=== PATIENT | female | born 1935 | race Caucasian/White ===

== ENCOUNTER 2018-09-24 11:21 | Emergency (ER) | payer MEDICARE, OTHER ==
[2018-09-24] MEDS ORDERED: Sodium Chloride 0.9% 1000 ML 1,000 ML IV STA (11:56)
[2018-09-24] MEDS ORDERED: Sodium Chloride 0.9% 1000 ML 1,000 ML IV SCH (12:00)
[2018-09-24 12:01] VITALS: O2SAT 98
--- NOTE | 2018-09-24 12:04 | ERPHSYRPT ---
- History of Present Illness Time Seen by Provider: 09/24/18 11:59 Source: patient, family Exam Limitations: no limitations Physician History: This is [id number] white female with history of dementia, CVA, high blood pressure, TIA, diabetes type 2 Patient apparently resides at a [facility] and she is brought by her daughter the patient apparently has been noticed by her daughter to be weak she states that she apparently has run a low grade fever for the last few days, she states patient was having difficulty ambulating last night she thought she had some facial drooping 5 days ago. Patient not complaining of shortness breath at this time no chest pain she is not having any problems moving. Past medical history includes dementia, CVA, high blood pressure, diabetes type 2, hypercholesterolemia, Past surgical history Hysterectomy Timing/Duration: day(s) (weakness with low-grade fever for 5 days possible facial droop 5 days ago trouble ambulating last night) Severity: moderate Modifying Factors: Improves With: nothing Associated Symptoms: fever, weakness, No nausea, No vomiting, No abdominal pain , No shortness of breath, No heartburn, No diaphoresis, No cough, No chills, No chest pain, No headaches, No loss of appetite, No malaise, No rash, No syncope, No seizure Allergies/Adverse Reactions: No Known Drug Allergies Allergy (Verified 09/24/18 12:01) Home Medications: Glipizide [Glipizide ER] 2.5 mg PO DAILY 09/24/18 [History] - Review of Systems Constitutional: Fever, Weakness, No Chills, No Fatigue, No Lethargy, No Malaise , No Night Sweats, No Weight Loss Eyes: No Symptoms Ears, Nose, & Throat: No Symptoms Respiratory: No Cough, No Dyspnea Cardiac: No Chest Pain, No Edema, No Syncope Abdominal/Gastrointestinal: No Abdominal Pain, No Nausea, No Vomiting, No Diarrhea Genitourinary Symptoms: No Dysuria Musculoskeletal: No Back Pain, No Neck Pain Skin: No Rash Neurological: Other (possible facial droop 5 days ago trouble ambulating last night) Psychological: No Symptoms Endocrine: No Symptoms All Other Systems: Reviewed and Negative - Past Medical History Neurological History: Stroke, TIA Cardiac History: High Cholesterol, Hypertension Endocrine Medical History: Diabetes Type II - Past Surgical History Female Surgical History: Hysterectomy - Nursing Vital Signs Nursing Vital Signs: Initial Vital Signs Temperature 99.4 F 09/24/18 11:37 Pulse Rate 80 09/24/18 11:37 Respiratory Rate 18 09/24/18 11:37 Blood Pressure 123/62 09/24/18 11:37 O2 Sat by Pulse Oximetry 98 09/24/18 11:37 Pain Scale Pain Intensity 4 - Physical Exam General Appearance: no apparent distress, alert Eye Exam: PERRL/EOMI, eyes nml inspection Ears, Nose, Throat Exam: normal ENT inspection, TMs normal, pharynx normal, moist mucous membranes Neck Exam: normal inspection, non-tender, supple, full range of motion Respiratory Exam: normal breath sounds, lungs clear, No respiratory distress Cardiovascular Exam: regular rate/rhythm, normal heart sounds, normal peripheral pulses, capillary refill <2 sec Gastrointestinal/Abdomen Exam: soft, normal bowel sounds, No tenderness, No mass Back Exam: normal inspection, normal range of motion, No CVA tenderness, No vertebral tenderness Extremity Exam: normal inspection, normal range of motion, pelvis stable Neurologic Exam: alert, 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, cooperative, information security associate II-XII nml as tested, normal mood/affect, nml cerebellar function, nml station & gait, sensation nml, No motor deficits Skin Exam: normal color, warm, dry, No rash SpO2 Interpretation: normal - Course Nursing assessment & vital signs reviewed: Yes EKG Interpreted by Me: RATE (73 bpm), Sinus Rhythm, Left [place] Deviation, Other ( EKG: Sinus rhythm, 73 beats per minute, left axis deviation, Q waves inferior leads, no acute ST or T wave changes, no old EKG for comparison) - Radiology Exams Chest X-ray Interpretation: Discussed w/ radiologist (nonacute chest) - CT Exams Head CT Interpretation: Discussed w/radiologist (head CT: Impression: 1. Mild paranasal sinus disease 2. Normal aging brain including atrophy and degenerative microischemia, 3. No acute intracranial abnormalities) Ordered Tests: Active Orders 24 hr Category Date Time Status EKG-ER Only STAT Care 09/24/18 11:56 Active IV Insertion STAT Care 09/24/18 11:56 Active CHEST 1 VIEW (PORTABLE) Stat Exams 09/24/18 11:56 Completed HEAD WITHOUT CONTRAST [CT] Stat Exams 09/24/18 11:58 Completed AMYLASE Stat Lab 09/24/18 11:45 Completed BLOOD CULTURE Stat Lab 09/24/18 12:13 Received CBC W DIFF Stat Lab 09/24/18 11:45 Completed CMP Stat Lab 09/24/18 11:45 Completed LIPASE Stat Lab 09/24/18 11:45 Completed Lactic Acid Stat Lab 09/24/18 12:10 Completed TROPONIN Q3H Lab 09/24/18 11:45 Completed TROPONIN Q3H Lab 09/24/18 15:00 Ordered TROPONIN Q3H Lab 09/24/18 18:00 Ordered TROPONIN Q3H Lab 09/24/18 21:00 Ordered TROPONIN Q3H Lab 09/25/18 00:00 Ordered UA W/RFX UR CULTURE Stat Lab 09/24/18 12:07 Completed VENOUS BLOOD GAS Urgent Lab 09/24/18 12:10 Completed Medication Summary Generic Name Dose Route Start Last Admin Trade Name Freq PRN Reason Stop Dose Admin Sodium Chloride 1,000 mls @ 100 mls/hr 09/24/18 12:00 09/24/18 12:10 Sodium Chloride 0.9% 1000 Ml IV 10/24/18 11:59 100 mls/hr .Q10H DOTTIE Administration Discontinued Medications Generic Name Dose Route Start Last Admin Trade Name Freq PRN Reason Stop Dose Admin Sodium Chloride 1,000 mls @ 999 mls/hr 09/24/18 11:56 09/24/18 12:09 Sodium Chloride 0.9% 1000 Ml IV 09/24/18 12:56 Not Given .Q1H1M STA Lab/Rad Data: Laboratory Result Diagrams 09/24/18 11:45 09/24/18 11:45 Laboratory Results 09/24/18 09/24/18 09/24/18 Range/Units 12:10 12:10 12:07 WBC (4.0-10.5) K/mm3 RBC (4.1-5.4) M/mm3 Hgb (12.0-16.0) gm/dl Hct (35-47) % MCV (78-100) fl MCH (26-32) pg MCHC (32-36) g/dl RDW (11.5-14.0) % Plt Count (150-450) K/mm3 MPV (6-9.5) fl Gran % (36.0-66.0) % Eos # (Auto) (0-0.5) Absolute Lymphs (auto) (1.0-4.6) Absolute Monos (auto) (0.0-1.3) Lymphocytes % (24.0-44.0) % Monocytes % (0.0-12.0) % Eosinophils % (0.00-5.0) % Basophils % (0.0-0.4) % Absolute Granulocytes (1.4-6.9) Basophils # (0-0.4) pO2/FiO2 Ratio 21.0 % VBG pH 7.42 (7.32-7.42) VBG pCO2 at Pat Temp 35 L (42-55) mm/Hg VBG pO2 at Pat Temp 31 (25-40) mm/Hg VBG HCO3 22.7 (22-28) meq/L VBG O2 Sat (Jennifer) 62.3 L (95-100) VBG Base Excess -1.3 (-2.0-2.0) VBG Hemoglobin 12.8 VBG Carboxyhemoglobin 3.0 (0.0-6.9) % T HGB POC Potassium 4.2 (3.5-5.1) Sodium (137-145) mmol/L Potassium (3.5-5.1) mmol/L Chloride (98-107) mmol/L Carbon Dioxide (22-30) mmol/L Anion Gap (5-15) MEQ/L BUN (7-17) mg/dL Creatinine (0.52-1.04) mg/dL Estimated GFR ML/MIN Glucose (74-106) mg/dL Lactic Acid 1.7 (0.4-2.0) Calcium (8.4-10.2) mg/dL Total Bilirubin (0.2-1.3) mg/dL AST (14-36) U/L ALT (0-35) U/L Alkaline Phosphatase (38-126) U/L Troponin I (0.000-0.034) ng/mL Serum Total Protein (6.3-8.2) g/dL Albumin (3.5-5.0) g/dL Amylase (30-110) U/L Lipase (23-300) U/L Urine Color YELLOW (YELLOW) Urine Appearance SLIGHTLY CLOUDY (CLEAR) Urine pH 5.0 (5-6) Ur Specific [place] 1.008 (1.005-1.025) Urine Protein NEGATIVE (Negative) Urine Ketones NEGATIVE (NEGATIVE) Urine Blood NEGATIVE (0-5) Miko/ul Urine Nitrite NEGATIVE (NEGATIVE) Urine Bilirubin NEGATIVE (NEGATIVE) Urine Urobilinogen NEGATIVE (0-1) mg/dL Ur Leukocyte Esterase NEGATIVE (NEGATIVE) Urine WBC (Auto) 0-2 (0-5) /HPF Urine RBC (Auto) NONE SEEN (0-2) /HPF U Epithel Cells (Auto) RARE (FEW) /HPF Urine Bacteria (Auto) MODERATE (NEGATIVE) /HPF Urine Culture Reflexed NO (NO) Urine Glucose NEGATIVE (NEGATIVE) mg/dL 09/24/18 09/24/18 09/24/18 Range/Units 11:45 11:45 11:45 WBC 10.1 (4.0-10.5) K/mm3 RBC 4.00 L (4.1-5.4) M/mm3 Hgb 11.3 L (12.0-16.0) gm/dl Hct 34.3 L (35-47) % MCV 85.8 (78-100) fl MCH 28.2 (26-32) pg MCHC 32.9 (32-36) g/dl RDW 14.2 H (11.5-14.0) % Plt Count 536 H (150-450) K/mm3 MPV 10.7 H (6-9.5) fl Gran % 57.9 (36.0-66.0) % Eos # (Auto) 0.37 (0-0.5) Absolute Lymphs (auto) 2.43 (1.0-4.6) Absolute Monos (auto) 1.43 H (0.0-1.3) Lymphocytes % 24.1 (24.0-44.0) % Monocytes % 14.2 H (0.0-12.0) % Eosinophils % 3.7 (0.00-5.0) % Basophils % 0.1 (0.0-0.4) % Absolute Granulocytes 5.85 (1.4-6.9) Basophils # 0.01 (0-0.4) pO2/FiO2 Ratio % VBG pH (7.32-7.42) VBG pCO2 at Pat Temp (42-55) mm/Hg VBG pO2 at Pat Temp (25-40) mm/Hg VBG HCO3 (22-28) meq/L VBG O2 Sat (Jennifer) (95-100) VBG Base Excess (-2.0-2.0) VBG Hemoglobin VBG Carboxyhemoglobin (0.0-6.9) % T HGB POC Potassium (3.5-5.1) Sodium 136 L (137-145) mmol/L Potassium 4.1 (3.5-5.1) mmol/L Chloride 101 (98-107) mmol/L Carbon Dioxide 22 (22-30) mmol/L Anion Gap 17.8 H (5-15) MEQ/L BUN 23 H (7-17) mg/dL Creatinine 1.22 H (0.52-1.04) mg/dL Estimated GFR 44.5 ML/MIN Glucose 234 H (74-106) mg/dL Lactic Acid (0.4-2.0) Calcium 9.2 (8.4-10.2) mg/dL Total Bilirubin 0.40 (0.2-1.3) mg/dL AST 22 (14-36) U/L ALT 21 (0-35) U/L Alkaline Phosphatase 107 (38-126) U/L Troponin I < 0.012 (0.000-0.034) ng/mL Serum Total Protein 7.6 (6.3-8.2) g/dL Albumin 3.5 (3.5-5.0) g/dL Amylase 51 (30-110) U/L Lipase 66 (23-300) U/L Urine Color (YELLOW) Urine Appearance (CLEAR) Urine pH (5-6) Ur Specific [place] (1.005-1.025) Urine Protein (Negative) Urine Ketones (NEGATIVE) Urine Blood (0-5) Miko/ul Urine Nitrite (NEGATIVE) Urine Bilirubin (NEGATIVE) Urine Urobilinogen (0-1) mg/dL Ur Leukocyte Esterase (NEGATIVE) Urine WBC (Auto) (0-5) /HPF Urine RBC (Auto) (0-2) /HPF U Epithel Cells (Auto) (FEW) /HPF Urine Bacteria (Auto) (NEGATIVE) /HPF Urine Culture Reflexed (NO) Urine Glucose (NEGATIVE) mg/dL - Progress Progress: improved Progress Note: 09/24/18 13:38 83-year-old white female brought by her family with complaint of low-grade fever weakness symptoms for 5 days. Family felt like the patient has no facial drooping 5 days ago they state that she was having trouble walking around last evening. Patient will write she is alert oriented x3 cranial nerves II through XII are intact she has full range of motion to extremities speech is normal no focal deficits are normal. Patient with EKG sinus rhythm 73 beats per minute left axis deviation Q waves in inferior leads CBC is essentially normal platelets are mildly elevated at 536 patient's chemistry remarkable for a glucose of 234 BUN 23 creatinine 1.22 otherwise essentially normal troponin within normal limits urine is clean chest x-ray no acute disease process noted head CT, impression 1 mild paranasal sinus disease to normal aging brain including atrophy and degenerative microischemia, no acute intracranial abnormalities. Patient's vitals are stable patient is not in acute distress I discussed the case with Dr. Hamilton, She states that she has seen the patient last Saturday secondary to the same concerns. Will go ahead and release patient patient to continue current care at [facility] continue current medications and treatment followup with Dr. hamilton. - Departure Departure Disposition: Extended Care Facility Clinical Impression: Weakness Condition: Fair Critical Care Time: No Referrals: JANET BURGOS [Primary Care Provider] - Additional Instructions: Return to [facility]. Continue current medications and treatment. Followup with your family . Return for acute distress or for severe symptoms.
[2018-09-24] MEDS ORDERED: Sodium Chloride 0.9% 1000 ML 1,000 ML ONE (12:09)
[2018-09-24 12:23] LABS: VBG BASE EXCESS -1.3 (-2.0-2.0); VBG HCO3- 22.7 meq/L (22-28); VBG HEMOGLOBIN 12.8; VBG O2 SATURATION 62.3 (95-100); VBG POTASSIUM 4.2 (3.5-5.1); VBG pH 7.42 (7.32-7.42)
[2018-09-24 12:31] LABS: Appearance SLIGHTLY CLOUDY (CLEAR); Bacteria MODERATE /HPF (NEGATIVE); Bilirubin NEGATIVE (NEGATIVE); Blood NEGATIVE Ery/ul (0-5); Epithelial Cells RARE /HPF (FEW); Glucose NEGATIVE (NEGATIVE); Ketones NEGATIVE (NEGATIVE); Leukocyte Esterase NEGATIVE (NEGATIVE); Nitrite NEGATIVE (NEGATIVE); Protein,Urine Dip NEGATIVE (Negative); Specific Gravity 1.008 (1.005-1.025); Urobilinogen NEGATIVE mg/dL (0-1); WBC 0-2 /HPF (0-5)
[2018-09-24 12:32] LABS: RBC NONE SEEN /HPF (0-2)
[2018-09-24 12:36] LABS: ALBUMIN 3.5 g/dL (3.5-5.0); ANION GAP 17.8 MEQ/L (5-15); BILIRUBIN,TOTAL 0.4 mg/dL (0.2-1.3); Calcium 9.2 mg/dL (8.4-10.2); Creatinine 1 1.22 mg/dL (0.52-1.04); Potassium 4.1 mmol/L (3.5-5.1); Total Protein 7.6 g/dL (6.3-8.2)
--- NOTE | 2018-09-24 12:53 | XRAY ---
Indication: Weakness and dizziness. Comparison: September 08, 2014. Portable chest is clear. Heart is not enlarged for AP portable technique. Bony thorax intact. Impression: Nonacute chest.
--- NOTE | 2018-09-24 12:57 | XRAY ---
Indication: Weakness and dizziness 5 days. Multiple contiguous axial images obtained through the head without contrast. Comparison: September 08, 2005. Again age-appropriate global atrophy and moderate/advanced bilateral periventricular degenerative micro-ischemia. No acute intracranial hemorrhage, abnormal extra-axial fluid collection, or mass effect. Fourth ventricle is midline without hydrocephalus. Bony calvarium intact. Mild mucosal thickening right sphenoid, right ethmoid, and left maxillary sinuses. Mastoid air cells are clear. Impression: 1. Mild paranasal sinus disease. 2. Again normal aging brain including atrophy and degenerative micro-ischemia. 3. No acute intracranial abnormalities. CT DI 69.79
[2018-09-24 13:08] VITALS: BP 131/65; PULSE 73
[2018-09-24 13:14] LABS: BASOPHIL % 0.1 % (0.0-0.4); Basophil (Absolute #) 0.01 (0-0.4); Eosinophil % 3.7 % (0.00-5.0); Eosinophil (Absolute #) 0.37 (0-0.5); Granulocyte Absolute (ANC) 5.85 (1.4-6.9); Granulocytes % 57.9 % (36.0-66.0); Hematocrit 34.3 % (35-47); Hemoglobin 11.3 gm/dl (12.0-16.0); Lymphocyte (Absolute #) 2.43 (1.0-4.6); Lymphocytes % 24.1 % (24.0-44.0); Mean Cell Volume 85.8 fl (78-100); Mean Corpuscular Hgb Concent. 32.9 g/dl (32-36); Mean Platelet Volume 10.7 fl (6-9.5); Monocyte (Absolute #) 1.43 (0.0-1.3); Monocytes % 14.2 % (0.0-12.0); Platelet Count 536 K/mm3 (150-450); Red Cell Distribution Width 14.2 % (11.5-14.0); White Blood Count 10.1 K/mm3 (4.0-10.5)
[2018-09-24 13:15] LABS: Mean Corpuscular Hemoglobin 28.2 pg (26-32)
== END 2018-09-24 13:55 | disposition home or self-care (01) ==
LOC: ED 11:21
DX: R53.1 Weakness (principal); F03.90 Unspecified dementia, unspecified severity, without behavioral disturbance, psychotic disturbance, mood disturbance, and anxiety; E11.9 Type 2 diabetes mellitus without complications; I10 Essential (primary) hypertension; Z86.73 Personal history of transient ischemic attack (TIA), and cerebral infarction without residual deficits; E78.00 Pure hypercholesterolemia, unspecified; Z79.899 Other long term (current) drug therapy
CPT/HCPCS: 36000; 36415; 70450; 71045; 80053; 81001; 82150; 82805; 83605; 83690; 84484; 85025; 87040; 93005; 96360; 99284

== ENCOUNTER 2020-04-27 14:35 | Observation (INO) | payer MEDICARE, OTHER ==
[2020-04-27] MEDS: POTASSIUM CHLORIDE 20 mEq IN WATER 100ML 20 MEQ/100 ML BAG IV SCH ×2 (18:48→22:29)
[2020-04-27] MEDS: ROCEPHIN 1 Gm-D5w 50 ml Bag** 1 G/50 ML IVPB IV SCH (18:48)
[2020-04-27] MEDS: Sodium Chloride 0.9% 1000 ML 1,000 ML IV SCH (18:48)
[2020-04-27] MEDS: ZOCOR 20MG PO SCH (21:25)
[2020-04-27] MEDS: Cozaar 50 MG PO SCH (21:26)
[2020-04-27] MEDS ORDERED: NON-FORMULARY ITEM (Losartan Potassium [Cozaar] 50 MG) PO SCH (22:00)
[2020-04-27] MEDS ORDERED: NON-FORMULARY ITEM (Pravastatin Sodium [Pravachol] 80 MG) PO SCH (22:00)
[2020-04-28] MEDS: SYNTHROID 150 MCG PO SCH (05:31)
[2020-04-28 05:43] LABS: Hematocrit 37.6 % (35-47); Mean Corpuscular Hemoglobin 27.8 pg (26-32); Mean Corpuscular Hgb Concent. 31.9 g/dl (32-36); Mean Platelet Volume 11.2 fl (7.5-11.0); Platelet Count 383 K/mm3 (150-450); Red Blood Count 4.32 M/mm3 (4.1-5.4); Red Cell Distribution Width 14.9 % (11.5-14.0); White Blood Count 8.6 K/mm3 (4.0-10.5)
[2020-04-28] MEDS: Sodium Chloride 0.9% 1000 ML 1,000 ML IV SCH ×2 (05:48→21:38)
[2020-04-28 08:25] LABS: ALBUMIN 3.1 g/dL (3.5-5.0); ANION GAP 9.2 MEQ/L (5-15); BILIRUBIN,TOTAL 0.6 mg/dL (0.2-1.3); Calcium 8.2 mg/dL (8.4-10.2); Creatinine 1 1.13 mg/dL (0.52-1.04); EST GLOMERULAR FILTRATION RATE 48.5 ML/MIN; Total Protein 6.2 g/dL (6.3-8.2)
[2020-04-28] MEDS ORDERED: Magnesium 1 Gm / 100 Ml D5W*** 100 ML IV SCH (09:00)
[2020-04-28] MEDS ORDERED: POTASSIUM CHLORIDE 20 mEq IN WATER 100ML 20 MEQ/100 ML BAG IV SCH (09:00)
[2020-04-28] MEDS: Protonix 40MG Tablet PO SCH (09:27)
[2020-04-28] MEDS: Klor Con 10 MEQ PO SCH (09:27)
[2020-04-28] MEDS: Lexapro 10 MG PO SCH (09:27)
[2020-04-28] MEDS: Glucotrol Xl 10 MG PO SCH (09:27)
[2020-04-28] MEDS: Cozaar 50 MG PO SCH ×2 (09:27→21:39)
[2020-04-28] MEDS: NORVASC 5 MG PO SCH (09:27)
[2020-04-28] MEDS ORDERED: Potassium Chloride 40 MEQ/20 ML VIAL 40 MEQ, Magnesium Sulfate 1 GM/2 ML VIAL*** 2 GM i... IV SCH ×3 (10:00)
[2020-04-28] MEDS ORDERED: Glucotrol Xl 2.5 MG PO SCH (10:00)
--- NOTE | 2020-04-28 15:56 | PCM.NOTE ---
Date and Time: 04/28/20 1545 Subjective Assessment: 84 yr old female seen and examined this am following direct admission for hypokalemia UTI and omari. Patient is a mildly limited historian due to dementia. Patient reports that she is feeling better following admission. She reports she does not feel as shaky. Patient reports that she was having some urinary frequency and pain prior to admission. Patient denies any urgency or freq this am. She had one episode of vomiting on Sat but none reported since that time. - Review of Systems Constitutional: Other (Dizziness), No Fever Eyes: No Symptoms Ears, Nose, & Throat: No Symptoms Respiratory: Short Of Breath, No Cough, No Wheezing Cardiac: Syncope (Patient had syncopal episode on Sat night but refused to go with EMS to hospital ), No Chest Pain, No Edema Abdominal/Gastrointestinal: Diarrhea, No Abdominal Pain, No Nausea, No Vomiting, No Constipation, No Appetite Changes Genitourinary Symptoms: Frequency (Prior to admission) Musculoskeletal: Fall Skin: No Symptoms Neurological: Dizziness, Other (Hx of dementia), No Headache Psychological: Anxiety, Depression, Memory Loss, No Alcohol Abuse, No Drug Abuse Objective Exam General Appearance: no apparent distress (Patient was resting comfortably upon entering the room), alert, anxiety Neurologic Exam: alert, 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, cooperative, other (mild cognitive impairment) Skin Exam: normal color, warm, dry, No rash Eye Exam: No scleral icterus Ears, Nose, Throat Exam: moist mucous membranes Neck Exam: normal inspection Respiratory Exam: normal breath sounds, lungs clear, No chest tenderness, No respiratory distress, No diminished breath sounds, No accessory muscle use, No crackles/rales, No wheezing Cardiovascular Exam: regular rate/rhythm, normal heart sounds, normal peripheral pulses, No murmur, No friction rub, No gallop Gastrointestinal/Abdomen Exam: soft, normal bowel sounds, No tenderness, No distention, No mass Extremity Exam: No pedal edema, No swelling Pelvic Exam: deferred Rectal Exam: deferred OBJECTIVE DATA Vital Signs: Vital Signs - 24 hr Temp Pulse Resp BP BP Pulse Ox 04/28/20 12:00 98.5 F 70 20 128/70 96 04/28/20 07:41 98.3 F 69 20 133/67 96 04/28/20 04:00 98.2 F 60 18 134/71 93 L 04/28/20 00:00 98.2 F 64 20 137/66 93 L 04/27/20 20:00 98.0 F 78 18 147/69 95 04/27/20 16:36 97.8 F 60 18 164/76 98 04/27/20 16:12 97.8 F 60 18 164/76 98 04/27/20 16:10 97.8 F 60 18 164/76 98 Pain Assessment - Last Documented Pain Intensity 0 Intake and Output: Intake & Output 04/26/20 04/27/20 04/28/20 04/29/20 11:59 11:59 11:59 11:59 Intake Total 2240 240 Balance 2240 240 Weight 81.8 kg Lab Results: Lab Results-Last 24 Hours 04/27/20 04/27/20 04/28/20 Range/Units 17:34 21:21 04:35 WBC 8.6 (4.0-10.5) K/mm3 RBC 4.32 (4.1-5.4) M/mm3 Hgb 12.0 (12.0-16.0) gm/dl Hct 37.6 (35-47) % MCV 87.0 (78-100) fl MCH 27.8 (26-32) pg MCHC 31.9 L (32-36) g/dl RDW 14.9 H (11.5-14.0) % Plt Count 383 (150-450) K/mm3 MPV 11.2 H (7.5-11.0) fl Sodium (137-145) mmol/L Potassium (3.5-5.1) mmol/L Chloride (98-107) mmol/L Carbon Dioxide (22-30) mmol/L Anion Gap (5-15) MEQ/L BUN (7-17) mg/dL Creatinine (0.52-1.04) mg/dL Estimated GFR ML/MIN Glucose (74-106) mg/dL POC Glucometer 125 H 157 H (74 to 106) mg/dL Hemoglobin A1c (4.5-6.0) % Calcium (8.4-10.2) mg/dL Magnesium (1.6-2.3) mg/dL Total Bilirubin (0.2-1.3) mg/dL AST (14-36) U/L ALT (0-35) U/L Alkaline Phosphatase (38-126) U/L NT-Pro-B Natriuret Pep (0-1800) pg/mL Serum Total Protein (6.3-8.2) g/dL Albumin (3.5-5.0) g/dL 04/28/20 04/28/20 04/28/20 Range/Units 04:35 04:45 05:00 WBC (4.0-10.5) K/mm3 RBC (4.1-5.4) M/mm3 Hgb (12.0-16.0) gm/dl Hct (35-47) % MCV (78-100) fl MCH (26-32) pg MCHC (32-36) g/dl RDW (11.5-14.0) % Plt Count (150-450) K/mm3 MPV (7.5-11.0) fl Sodium 139 (137-145) mmol/L Potassium 3.0 L (3.5-5.1) mmol/L Chloride 109 H (98-107) mmol/L Carbon Dioxide 24 (22-30) mmol/L Anion Gap 9.2 (5-15) MEQ/L BUN 11 (7-17) mg/dL Creatinine 1.13 H (0.52-1.04) mg/dL Estimated GFR 48.5 ML/MIN Glucose 109 H (74-106) mg/dL POC Glucometer (74 to 106) mg/dL Hemoglobin A1c 6.54 H (4.5-6.0) % Calcium 8.2 L (8.4-10.2) mg/dL Magnesium 1.9 (1.6-2.3) mg/dL Total Bilirubin 0.60 (0.2-1.3) mg/dL AST 19 (14-36) U/L ALT 8 (0-35) U/L Alkaline Phosphatase 103 (38-126) U/L NT-Pro-B Natriuret Pep 237 (0-1800) pg/mL Serum Total Protein 6.2 L (6.3-8.2) g/dL Albumin 3.1 L (3.5-5.0) g/dL 04/28/20 04/28/20 Range/Units 06:29 11:10 WBC (4.0-10.5) K/mm3 RBC (4.1-5.4) M/mm3 Hgb (12.0-16.0) gm/dl Hct (35-47) % MCV (78-100) fl MCH (26-32) pg MCHC (32-36) g/dl RDW (11.5-14.0) % Plt Count (150-450) K/mm3 MPV (7.5-11.0) fl Sodium (137-145) mmol/L Potassium (3.5-5.1) mmol/L Chloride (98-107) mmol/L Carbon Dioxide (22-30) mmol/L Anion Gap (5-15) MEQ/L BUN (7-17) mg/dL Creatinine (0.52-1.04) mg/dL Estimated GFR ML/MIN Glucose (74-106) mg/dL POC Glucometer 90 153 H (74 to 106) mg/dL Hemoglobin A1c (4.5-6.0) % Calcium (8.4-10.2) mg/dL Magnesium (1.6-2.3) mg/dL Total Bilirubin (0.2-1.3) mg/dL AST (14-36) U/L ALT (0-35) U/L Alkaline Phosphatase (38-126) U/L NT-Pro-B Natriuret Pep (0-1800) pg/mL Serum Total Protein (6.3-8.2) g/dL Albumin (3.5-5.0) g/dL Multi-Disciplinary Progress Notes: Multi-Disciplinary Progress Notes 04/28/20 11:21 Case Management Note by Gisell Castro DISCHARGE PLAN REVIEWED IN CHART. ARIA IS LAYCAREGIVER. PHONE [phone]. PT NORMALLY LIVES AT HOME WITH OTHER FAMILY MEMBERS. SHE HAS A CANE AND DIABETIC TESTING DEVICE. SHE HAS MEANS FOR MEDICATIONS AND TRANSPORTATION. PLAN IS TO RETURN HOME TO PRE EPISODIC LEVEL OF CONDITION. 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 Initialized on 04/28/20 11:21 - END OF NOTE Assessment/Plan (1) Syncopal episodes Current Visit: Yes Status: Acute Assessment & Plan: Patient was seen in clinic for syncopal episode which happened on Sat evening. She refused to go to with EMS to hospital. At baseline patient has mild dementia which likely impairs her decision making. Patient reports she feels that she feels she is goint to fall to the R side at times. She had outpatient labs done yesterday which showed hypokalemia UTI and omari. Patient was admitted and started on IV potassium and magnesium. Hypokalemia is slowly improving but still below normal. She had additional potassium given today. She reports slight improveme nt of symptoms. Patient is being monitored on tele. Possible DC tomorrow if her symptoms improve and her urine cultures are back to be able to discharge her on appropriate PO antibiotic. Code(s): R55 - SYNCOPE AND COLLAPSE (2) Hypokalemia Current Visit: Yes Status: Acute Assessment & Plan: Patient has been repleted with 80 meq of K rider. She also has 10 meq PO daily that she continues to take. Will continue to trend potassium level and address as necessary Code(s): E87.6 - HYPOKALEMIA (3) UTI (urinary tract infection) Current Visit: Yes Status: Acute Assessment & Plan: Patient was started on daily rocephin 1 g IV. Cultures pending Code(s): N39.0 - URINARY TRACT INFECTION, SITE NOT SPECIFIED (4) OMARI (acute kidney injury) Current Visit: Yes Status: Acute Assessment & Plan: Patient does have hx of CHF. She was started on gentle hydration for OMARI. Will continue to monitor kidney function. Code(s): N17.9 - ACUTE KIDNEY FAILURE, UNSPECIFIED (5) Hypertension Current Visit: Yes Status: Acute Code(s): I10 - ESSENTIAL (PRIMARY) HYPERTENSION (6) Diabetes Current Visit: Yes Status: Acute Assessment & Plan: Patient will be on accuchecks AC/HS. Diabetic diet order and she will continue on her oral DM med Code(s): E11.9 - TYPE 2 DIABETES MELLITUS WITHOUT COMPLICATIONS (7) Dementia Current Visit: Yes Status: Acute Assessment & Plan: Patient has reported hx of dementia. Unsure when this was diagnosed and she has not been started on medications for this at this time. Will discuss this during follow up visit as outpatient following this acute illness Code(s): F03.90 - UNSPECIFIED DEMENTIA WITHOUT BEHAVIORAL DISTURBANCE
[2020-04-28] MEDS: ENOXAPARIN SODIUM SQ SCH (17:12)
[2020-04-28] MEDS: ROCEPHIN 1 Gm-D5w 50 ml Bag** 1 G/50 ML IVPB IV SCH (17:12)
[2020-04-28] MEDS: ZOCOR 20MG PO SCH (21:38)
[2020-04-29] MEDS: SYNTHROID 150 MCG PO SCH (05:26)
--- NOTE | 2020-04-29 09:09 | PCM.DS ---
Discharge Summary Date of Admission: 04/27/20 16:08 Admitting Physician: MARLENI MAJANO MD Primary Care Provider: MARLENI MAJANO MD Allergies Allergies No Known Drug Allergies Allergy (Verified 04/27/20 16:14) Hospital Summary - Hospital Course Hospital Course: Last Vital Signs Temp 98.2 F 04/29/20 07:39 Pulse 62 04/29/20 07:39 Resp 18 04/29/20 08:00 BP 157/74 04/29/20 07:39 Pulse Ox 92 L 04/29/20 07:39 Allergies No Known Drug Allergies Allergy (Verified 04/27/20 16:14) Active Medications Amlodipine Besylate (Norvasc 5 Mg) 2.5 mg PO DAILY DOTTIE Stop: 05/28/20 09:59 Last Admin: 04/28/20 09:27 Dose: 2.5 mg Documented by: Enoxaparin Sodium (Enoxaparin Sodium) 30 mg SQ DAILY DOTTIE Stop: 05/28/20 16:29 Last Admin: 04/28/20 17:12 Dose: 30 mg Documented by: Escitalopram Oxalate (Lexapro 10 Mg) 20 mg PO DAILY DOTTIE Stop: 05/28/20 09:59 Last Admin: 04/28/20 09:27 Dose: 20 mg Documented by: Glipizide (Glucotrol Xl 10 Mg) 10 mg PO DAILY DOTTIE Stop: 05/28/20 09:59 Last Admin: 04/28/20 09:27 Dose: 10 mg Documented by: Sodium Chloride (Sodium Chloride 0.9% 1000 Ml) 1,000 mls @ 75 mls/hr IV .[id number] DOTTIE Stop: 05/27/20 17:14 Last Admin: 04/28/20 21:38 Dose: 75 mls/hr Documented by: Ceftriaxone Sodium/Dextrose (Rocephin 1 Gm-D5w 50 Ml Bag) 1 g in 50 mls @ 100 mls/hr IV Q24H DOTTIE Stop: 05/27/20 17:59 Last Admin: 04/28/20 17:12 Dose: 100 mls/hr Documented by: Levothyroxine Sodium (Synthroid 150 Mcg) 150 mcg PO 0600 DOTTIE Stop: 05/28/20 05:59 Last Admin: 04/29/20 05:26 Dose: 150 mcg Documented by: Losartan Potassium (Cozaar 50 Mg) 50 mg PO BID [facility] Stop: 05/27/20 21:59 Last Admin: 04/28/20 21:39 Dose: 50 mg Documented by: Pantoprazole Sodium (Protonix 40mg Tablet) 40 mg PO QAM [facility] Stop: 05/28/20 09:59 Last Admin: 04/28/20 09:27 Dose: 40 mg Documented by: Potassium Chloride (Klor Con 10 Meq) 10 meq PO DAILY DOTTIE Stop: 05/28/20 09:59 Last Admin: 04/28/20 09:27 Dose: 10 meq Documented by: Simvastatin (Zocor 20mg) 40 mg PO HS [facility] Stop: 05/27/20 21:59 Last Admin: 04/28/20 21:38 Dose: 40 mg Documented by: Intake & Output 04/28/20 04/29/20 11:59 11:59 Intake Total 2239 1907 Balance 224 190 Weight 81.8 kg Lab Tests 04/28/20 04/28/20 04/28/20 04:45 11:10 15:44 Potassium POC Glucometer 153 H 120 H Hemoglobin A1c 6.54 H Magnesium 04/28/20 04/28/20 04/29/20 18:23 21:05 07:13 Potassium 3.5 POC Glucometer 128 H 67 L Hemoglobin A1c Magnesium 04/29/20 04/29/20 07:19 08:26 Potassium POC Glucometer 143 H Hemoglobin A1c Magnesium 2.3 - Vitals & Intake/Output Vital Signs: Vital Signs Temperature 98.2 F 04/29/20 07:39 Pulse Rate 62 04/29/20 07:39 Respiratory Rate 18 04/29/20 08:00 Blood Pressure 157/74 04/29/20 07:39 O2 Sat by Pulse Oximetry 92 L 04/29/20 07:39 Intake & Output: Intake & Output 04/26/20 04/27/20 04/28/20 04/29/20 11:59 11:59 11:59 11:59 Intake Total 0 1907 Balance 2240 190 Weight 81.8 kg - Lab Result Diagrams: 04/28/20 04:35 04/28/20 18:23 Lab Results-Last 24 Hrs: Lab Results-Last 24 Hours 04/28/20 04/28/20 04/28/20 Range/Units 04:45 11:10 15:44 Potassium (3.5-5.1) mmol/L POC Glucometer 153 H 120 H (74 to 106) mg/dL Hemoglobin A1c 6.54 H (4.5-6.0) % Magnesium (1.6-2.3) mg/dL 04/28/20 04/28/20 04/29/20 Range/Units 18:23 21:05 07:13 Potassium 3.5 (3.5-5.1) mmol/L POC Glucometer 128 H 67 L (74 to 106) mg/dL Hemoglobin A1c (4.5-6.0) % Magnesium (1.6-2.3) mg/dL 04/29/20 04/29/20 Range/Units 07:19 08:26 Potassium (3.5-5.1) mmol/L POC Glucometer 143 H (74 to 106) mg/dL Hemoglobin A1c (4.5-6.0) % Magnesium 2.3 (1.6-2.3) mg/dL Micro Results-Entire Visit: Accuchecks Date 04/29/20 Time 07:30 Discharge Exam General Appearance: no apparent distress, alert Neurologic Exam: alert, 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, cooperative, normal mood/affect, nml cerebellar function, sensation nml, No motor deficits Eye Exam: PERRL, EOMI, eyes nml inspection Ears, Nose, Throat Exam: normal ENT inspection, pharynx normal, moist mucous membranes Neck Exam: normal inspection, non-tender, supple, full range of motion Respiratory Exam: normal breath sounds, lungs clear, No respiratory distress Cardiovascular Exam: regular rate/rhythm, normal heart sounds Gastrointestinal/Abdomen Exam: soft, No tenderness, No mass Pelvic Exam: deferred Rectal Exam: deferred Back Exam: normal inspection, normal range of motion, No CVA tenderness, No vertebral tenderness Extremity Exam: normal inspection, normal range of motion Skin Exam: normal color, warm, dry Final Diagnosis/Problem List - Final Discharge Diagnosis/Problem (1) JOEL (acute kidney injury) Current Visit: Yes Status: Resolved Assessment & Plan: Last Vital Signs Temp 98.2 F 04/29/20 07:39 Pulse 62 04/29/20 07:39 Resp 18 04/29/20 08:00 BP 157/74 04/29/20 07:39 Pulse Ox 92 L 04/29/20 07:39 Allergies No Known Drug Allergies Allergy (Verified 04/27/20 16:14) Active Medications Amlodipine Besylate (Norvasc 5 Mg) 2.5 mg PO DAILY DOTTIE Stop: 05/28/20 09:59 Last Admin: 04/28/20 09:27 Dose: 2.5 mg Documented by: Enoxaparin Sodium (Enoxaparin Sodium) 30 mg SQ DAILY DOTTIE Stop: 05/28/20 16:29 Last Admin: 04/28/20 17:12 Dose: 30 mg Documented by: Escitalopram Oxalate (Lexapro 10 Mg) 20 mg PO DAILY DOTTIE Stop: 05/28/20 09:59 Last Admin: 04/28/20 09:27 Dose: 20 mg Documented by: Glipizide (Glucotrol Xl 10 Mg) 10 mg PO DAILY DOTTIE Stop: 05/28/20 09:59 Last Admin: 04/28/20 09:27 Dose: 10 mg Documented by: Sodium Chloride (Sodium Chloride 0.9% 1000 Ml) 1,000 mls @ 75 mls/hr IV .[id number] DOTTIE Stop: 05/27/20 17:14 Last Admin: 04/28/20 21:38 Dose: 75 mls/hr Documented by: Ceftriaxone Sodium/Dextrose (Rocephin 1 Gm-D5w 50 Ml Bag) 1 g in 50 mls @ 100 mls/hr IV Q24H DOTTIE Stop: 05/27/20 17:59 Last Admin: 04/28/20 17:12 Dose: 100 mls/hr Documented by: Levothyroxine Sodium (Synthroid 150 Mcg) 150 mcg PO 0600 DOTTIE Stop: 05/28/20 05:59 Last Admin: 04/29/20 05:26 Dose: 150 mcg Documented by: Losartan Potassium (Cozaar 50 Mg) 50 mg PO BID DOTTIE Stop: 05/27/20 21:59 Last Admin: 04/28/20 21:39 Dose: 50 mg Documented by: Pantoprazole Sodium (Protonix 40mg Tablet) 40 mg PO QAM DOTTIE Stop: 05/28/20 09:59 Last Admin: 04/28/20 09:27 Dose: 40 mg Documented by: Potassium Chloride (Klor Con 10 Meq) 10 meq PO DAILY DOTTIE Stop: 05/28/20 09:59 Last Admin: 04/28/20 09:27 Dose: 10 meq Documented by: Simvastatin (Zocor 20mg) 40 mg PO HS [facility] Stop: 05/27/20 21:59 Last Admin: 04/28/20 21:38 Dose: 40 mg Documented by: Intake & Output 04/28/20 04/29/20 11:59 11:59 Intake Total 2240 1908 Balance 2240 1908 Weight 81.8 kg Lab Tests 04/28/20 04/28/20 04/28/20 04:45 11:10 15:44 Potassium POC Glucometer 153 H 120 H Hemoglobin A1c 6.54 H Magnesium 04/28/20 04/28/20 04/29/20 18:23 21:05 07:13 Potassium 3.5 POC Glucometer 128 H 67 L Hemoglobin A1c Magnesium 04/29/20 04/29/20 07:19 08:26 Potassium POC Glucometer 143 H Hemoglobin A1c Magnesium 2.3 Code(s): N17.9 - ACUTE KIDNEY FAILURE, UNSPECIFIED (2) Hypokalemia Current Visit: Yes Status: Resolved Code(s): E87.6 - HYPOKALEMIA (3) UTI (urinary tract infection) Current Visit: Yes Status: Acute Assessment & Plan: Medication Report Amlodipine Besylate (Norvasc 5 Mg) 2.5 mg PO DAILY [facility] Stop: 05/28/20 09:59 Last Admin: 04/28/20 09:27 Dose: 2.5 mg Documented by: JOSE Enoxaparin Sodium (Enoxaparin Sodium) 30 mg SQ DAILY [facility] Stop: 05/28/20 16:29 Last Admin: 04/28/20 17:12 Dose: 30 mg Documented by: JOSE MAR Injection Site Document 04/28/20 17:12 JOSE (Rec: 04/28/20 17:12 JOSE [id number]) Injection Site MAR Injection Site Right Lower Quad Escitalopram Oxalate (Lexapro 10 Mg) 20 mg PO DAILY [facility] Stop: 05/28/20 09:59 Last Admin: 04/28/20 09:27 Dose: 20 mg Documented by: JOSE Glipizide (Glucotrol Xl 10 Mg) 10 mg PO DAILY [facility] Stop: 05/28/20 09:59 Last Admin: 04/28/20 09:27 Dose: 10 mg Documented by: JOSE Sodium Chloride (Sodium Chloride 0.9% 1000 Ml) 1,000 mls @ 75 mls/hr IV .[id number] DOTTIE Stop: 05/27/20 17:14 Last Admin: 04/28/20 21:38 Dose: 75 mls/hr Documented by: PTHOMLINSO Infusion/Titration Document 04/28/20 21:38 PDT (Rec: 04/28/20 21:38 PDT [id number]) Dosing & Rate IV Rate 75 Increase/Decrease Started/Running Cumulative Dose Not Applicable IV Intake Cumulative Intake (Rx) 2,000 Container Volume 1,000 Volume Adjustment/Waste 0 Ceftriaxone Sodium/Dextrose (Rocephin 1 Gm-D5w 50 Ml Bag) 1 g in 50 mls @ 100 mls/hr IV Q24H DOTTIE Stop: 05/27/20 17:59 Last Admin: 04/28/20 17:12 Dose: 100 mls/hr Documented by: JOSE Levothyroxine Sodium (Synthroid 150 Mcg) 150 mcg PO 0600 DOTTIE Stop: 05/28/20 05:59 Last Admin: 04/29/20 05:26 Dose: 150 mcg Documented by: PTHOMLINROBBIN Losartan Potassium (Cozaar 50 Mg) 50 mg PO BID DOTTIE Stop: 05/27/20 21:59 Last Admin: 04/28/20 21:39 Dose: 50 mg Documented by: PTHOMLINROBBIN Pantoprazole Sodium (Protonix 40mg Tablet) 40 mg PO QAM [facility] Stop: 05/28/20 09:59 Last Admin: 04/28/20 09:27 Dose: 40 mg Documented by: JOSE Potassium Chloride (Klor Con 10 Meq) 10 meq PO DAILY DOTTIE Stop: 05/28/20 09:59 Last Admin: 04/28/20 09:27 Dose: 10 meq Documented by: JOSE Simvastatin (Zocor 20mg) 40 mg PO HS DOTTIE Stop: 05/27/20 21:59 Last Admin: 04/28/20 21:38 Dose: 40 mg Documented by: MYNOR Discontinued Medications Potassium Chloride (Potassium Chloride 20 Meq In Water 100ml) 20 meq in 100 mls @ 50 mls/hr IV Q2H [facility] Stop: 04/27/20 21:14 Last Admin: 04/27/20 22:29 Dose: 50 mls/hr Documented by: PRESLEY Potassium Chloride 40 meq/Magnesium Sulfate 2 gm/ Sodium Chloride 274 mls @ 68.5 mls/hr IV 1000 DOTTIE Stop: 04/28/20 13:59 Last Admin: 04/28/20 09:27 Dose: 68.5 mls/hr Documented by: JOSE mcguire d/c her home with Cipro 500 mg po bid for 5 days. Follow up with Dr Marleni Majano in 3 days Code(s): N39.0 - URINARY TRACT INFECTION, SITE NOT SPECIFIED - Discharge Discharge Date: 04/29/20 Disposition: Home, Self-Care Condition: Stable Prescriptions: New Ciprofloxacin [Cipro 500 MG] 500 mg PO BID #10 tablet Continue Glipizide [Glipizide ER] 10 mg PO DAILY Pravastatin Sodium [Pravachol] 80 mg PO HS Losartan Potassium [Cozaar] 50 mg PO BID Levothyroxine Sodium 150 Mcg [Synthroid 150 Mcg] 150 mcg PO 0600 PANTOPRAZOLE 40 mg Tablet [Protonix 40MG Tablet] 40 mg PO QAM Escitalopram Oxalate 10 mg [Lexapro 10 MG] 20 mg PO DAILY Potassium Chloride 10 Meq Tab* [Klor Con 10 MEQ] 10 meq PO DAILY Amlodipine Besylate 5 mg [Norvasc 5 mg] 2.5 mg PO DAILY Furosemide 40 mg [Lasix 40 MG] 40 mg PO DAILY Instructions: Hypokalemia (DC), Urinary Tract Infection, Adult (DC) Follow up with: MARLENI MAJANO MD [Primary Care Provider] - 5 Days
[2020-04-29] MEDS: Cozaar 50 MG PO SCH (09:10)
[2020-04-29] MEDS: Lexapro 10 MG PO SCH (09:10)
[2020-04-29] MEDS: Glucotrol Xl 10 MG PO SCH (09:10)
[2020-04-29] MEDS: Klor Con 10 MEQ PO SCH (09:10)
[2020-04-29] MEDS: Protonix 40MG Tablet PO SCH (09:11)
[2020-04-29] MEDS: NORVASC 5 MG PO SCH (09:11)
[2020-04-29] MEDS: ENOXAPARIN SODIUM SQ SCH (09:12)
[2020-04-29] MEDS ORDERED: ENOXAPARIN SODIUM SQ SCH (10:00)
[2020-04-29 15:16] VITALS: BP 157/74; PULSE 62; O2SAT 92
== END 2020-04-29 16:00 | disposition home or self-care (01) ==
LOC: MED SURG 16:08
PROVIDERS: ADMIT Family Medicine; ATTEND Family Medicine
DX: N17.9 Acute kidney failure, unspecified (principal); E87.6 Hypokalemia; N39.0 Urinary tract infection, site not specified; Z79.899 Other long term (current) drug therapy; R42 Dizziness and giddiness; R19.7 Diarrhea, unspecified; E11.9 Type 2 diabetes mellitus without complications; F03.90 Unspecified dementia, unspecified severity, without behavioral disturbance, psychotic disturbance, mood disturbance, and anxiety
CPT/HCPCS: 36415; 80053; 82947; 83036; 83735; 83880; 84132; 85027; 87077; 87086; 87186; 93268; G0378; 81001; 99214; J0696; J1650; J3475; J3480; A9270-GY

== ENCOUNTER 2020-05-29 09:27 | Emergency (ER) | payer MEDICARE, OTHER ==
[2020-05-29] MEDS ORDERED: Sodium Chloride 0.9% 1000 ML 1,000 ML IV STA (09:45)
[2020-05-29] MEDS ORDERED: Sodium Chloride 0.9% 1000 ML 1,000 ML ONE (09:53)
--- NOTE | 2020-05-29 10:01 | ERPHSYRPT ---
- History of Present Illness Time Seen by Provider: 05/29/20 09:57 Historian: patient Exam Limitations: no limitations Patient Subjective Stated Complaint: Abdominal pain Triage Nursing Assessment: Patient brought back to ED via w/c and transferred to bed with assist of 1. Patient A+O X3. with intermittent confusion. Patient complains of abdominal pain constant sharp pain 8/10 since Saturday. Patient poor historian. Abdomen soft and round with Bs X 4. Patient denies N/V and diarrhea. Physician History: Patient is a 34-year-old female with significant past medical history of hypertension diabetes congestive heart failure hyperlipidemia started having abdominal pain starting from epigastric area all the way to hypogastric area associated with gassy feelings in her abdomen radiating to the back and costovertebral angle area. Patient denies any nausea vomiting diarrhea or constipation. Patient denies any fever. Patient symptoms started yesterday even though she correlates that with possibility of flu vaccine or coronavirus vaccine she could not tell me exactly which vaccines she got. Timing/Duration: yesterday Activities at Onset: none Quality: cramping Abdominal Pain Onset Location: epigastric, generalized abdomen Pain Radiation: flank Severity of Pain-Max: mild Severity of Pain-Current: mild Modifying Factors: Improves With: nothing Associated Symptoms: denies symptoms Allergies/Adverse Reactions: No Known Drug Allergies Allergy (Verified 05/29/20 09:52) Home Medications: Glipizide [Glipizide ER] 10 mg PO DAILY 09/24/18 [History] Levothyroxine Sodium 150 Mcg [Synthroid 150 Mcg] 150 mcg PO 0600 09/24/18 [History] Losartan Potassium [Cozaar] 50 mg PO BID 09/24/18 [History] Pravastatin Sodium [Pravachol] 80 mg PO HS 09/24/18 [History] Amlodipine Besylate 5 mg [Norvasc 5 mg] 2.5 mg PO DAILY 04/27/20 [History] Escitalopram Oxalate 10 mg [Lexapro 10 MG] 20 mg PO DAILY 04/27/20 [History] Furosemide 40 mg [Lasix 40 MG] 40 mg PO DAILY 04/27/20 [History] PANTOPRAZOLE 40 mg Tablet [Protonix 40MG Tablet] 40 mg PO QAM 04/27/20 [History] Potassium Chloride 10 Meq Tab* [Klor Con 10 MEQ] 10 meq PO DAILY 04/27/20 [History] Hx Tetanus, Diphtheria Vaccination/Date Given: No Hx Influenza Vaccination/Date Given: Yes Hx Pneumococcal Vaccination/Date Given: Yes Immunizations Up to Date: Yes Travel Risk - International Travel Have you traveled outside of the country in past 3 weeks: No - Coronavirus Screening Are you exhibiting any of the following symptoms?: No Close contact with a COVID-19 positive Pt in past 14-21 Days: No - Review of Systems Constitutional: No Fever, No Chills Eyes: No Symptoms Ears, Nose, & Throat: No Symptoms Respiratory: No Cough, No Dyspnea Cardiac: No Chest Pain, No Edema, No Syncope Abdominal/Gastrointestinal: Abdominal Pain, No Nausea, No Vomiting, No Diarrhea Genitourinary Symptoms: No Dysuria Musculoskeletal: No Back Pain, No Neck Pain Skin: No Rash Neurological: No Dizziness, No Focal Weakness, No Sensory Changes Psychological: No Symptoms Endocrine: No Symptoms All Other Systems: Reviewed and Negative - Past Medical History Pertinent Past Medical History: Yes Neurological History: Stroke, TIA ENT History: No Pertinent History Cardiac History: High Cholesterol, Hypertension Respiratory History: No Pertinent History Endocrine Medical History: Diabetes Type II Musculoskeletal History: Arthritis GI Medical History: GERD History: Renal Disease Psycho-Social History: Anxiety, Depression Female Reproductive Disorders: No Pertinent History - Past Surgical History Past Surgical History: Yes Neuro Surgical History: No Pertinent History Cardiac: No Pertinent History Respiratory: No Pertinent History Gastrointestinal: No Pertinent History Genitourinary: No Pertinent History Musculoskeletal: No Pertinent History Female Surgical History: Hysterectomy - Social History Smoking Status: Never smoker Exposure to second hand smoke: Yes Drug Use: none Patient Lives Alone: No - Nursing Vital Signs Nursing Vital Signs: Initial Vital Signs Temperature 98.4 F 05/29/20 09:44 Pulse Rate 74 05/29/20 09:44 Respiratory Rate 18 05/29/20 09:44 Blood Pressure 136/83 05/29/20 09:44 O2 Sat by Pulse Oximetry 97 05/29/20 09:44 Pain Scale Pain Intensity 3 - Physical Exam General Appearance: no apparent distress, alert Eye Exam: PERRL/EOMI, eyes nml inspection Ears, Nose, Throat Exam: normal ENT inspection, pharynx normal, moist mucous membranes Neck Exam: normal inspection, non-tender, supple, full range of motion Respiratory Exam: normal breath sounds, lungs clear, No respiratory distress Cardiovascular Exam: regular rate/rhythm, normal heart sounds Gastrointestinal/Abdomen Exam: soft, No tenderness, No mass Back Exam: normal inspection, normal range of motion, No CVA tenderness, No vertebral tenderness Extremity Exam: normal inspection, normal range of motion, pelvis stable Neurologic Exam: alert, 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, cooperative, normal mood/affect, nml cere bellar function, sensation nml, No motor deficits Skin Exam: normal color, warm, dry SpO2: 97 - Course Nursing assessment & vital signs reviewed: Yes EKG Interpreted by Me: Non-specific ST Changes - Radiology Exams Abdomen X-ray Interpretation: Reviewed by me Ordered Tests: Active Orders 24 hr Category Date Time Status EKG-ER Only STAT Care 05/29/20 09:45 Active OBSTR/ACUTE ABDOMEN SERIES Stat Exams 05/29/20 09:47 Taken AMYLASE Stat Lab 05/29/20 09:35 Completed CBC W DIFF Stat Lab 05/29/20 09:35 Completed CMP Stat Lab 05/29/20 09:35 Completed LIPASE Stat Lab 05/29/20 09:35 Completed TROPONIN Stat Lab 05/29/20 09:35 Completed UA W/RFX UR CULTURE Stat Lab 05/29/20 09:53 Completed Medication Summary Generic Name Dose Route Start Last Admin Trade Name Freq PRN Reason Stop Dose Admin Potassium Chloride 20 meq in 100 mls @ 50 mls/hr 05/29/20 10:36 05/29/20 10:44 Potassium Chloride 20 Meq In Water 100ml IV 05/29/20 12:35 50 mls/hr STAT ONE Administration Discontinued Medications Generic Name Dose Route Start Last Admin Trade Name Freq PRN Reason Stop Dose Admin Sodium Chloride 1,000 mls @ 999 mls/hr 05/29/20 09:45 05/29/20 10:59 Sodium Chloride 0.9% 1000 Ml IV 05/29/20 10:45 Infused .Q1H1M STA Infusion Sodium Chloride Confirm 05/29/20 09:53 Sodium Chloride 0.9% 1000 Ml Administered 05/29/20 09:54 Dose 1,000 mls @ ud .ROUTE .STK-MED ONE Potassium Chloride Confirm 05/29/20 10:42 Potassium Chloride 20 Meq In Water 100ml Administered 05/29/20 10:43 Dose 100 mls @ ud IV .STK-MED ONE Lab/Rad Data: Laboratory Result Diagrams 05/29/20 09:35 05/29/20 09:35 Laboratory Results 05/29/20 05/29/20 05/29/20 Range/Units 09:53 09:35 09:35 WBC 13.4 H (4.0-10.5) K/mm3 RBC 5.07 (4.1-5.4) M/mm3 Hgb 14.0 (12.0-16.0) gm/dl Hct 42.8 (35-47) % MCV 84.4 (78-100) fl MCH 27.6 (26-32) pg MCHC 32.7 (32-36) g/dl RDW 15.1 H (11.5-14.0) % Plt Count 437 (150-450) K/mm3 MPV 11.2 H (7.5-11.0) fl Gran % 74.0 H (36.0-66.0) % Eos # (Auto) 0.19 (0-0.5) Absolute Lymphs (auto) 2.20 (1.0-4.6) Absolute Monos (auto) 1.09 (0.0-1.3) Lymphocytes % 16.4 L (24.0-44.0) % Monocytes % 8.1 (0.0-12.0) % Eosinophils % 1.4 (0.00-5.0) % Basophils % 0.1 (0.0-0.4) % Absolute Granulocytes 9.91 H (1.4-6.9) Basophils # 0.01 (0-0.4) Sodium 137 (137-145) mmol/L Potassium 2.8 L* (3.5-5.1) mmol/L Chloride 100 (98-107) mmol/L Carbon Dioxide 26 (22-30) mmol/L Anion Gap 13.7 (5-15) MEQ/L BUN 10 (7-17) mg/dL Creatinine 1.11 H (0.52-1.04) mg/dL Estimated GFR 49.5 ML/MIN Glucose 156 H (74-106) mg/dL Calcium 8.9 (8.4-10.2) mg/dL Total Bilirubin 1.40 H (0.2-1.3) mg/dL AST 17 (14-36) U/L ALT 9 (0-35) U/L Alkaline Phosphatase 128 H (38-126) U/L Troponin I < 0.012 (0.000-0.034) ng/mL Serum Total Protein 7.4 (6.3-8.2) g/dL Albumin 3.9 (3.5-5.0) g/dL Amylase 34 (30-110) U/L Lipase 62 (23-300) U/L Urine Color YELLOW (YELLOW) Urine Appearance CLEAR (CLEAR) Urine pH 6.0 (5-6) Ur Specific [place] 1.012 (1.005-1.025) Urine Protein NEGATIVE (Negative) Urine Ketones NEGATIVE (NEGATIVE) Urine Blood NEGATIVE (0-5) Miko/ul Urine Nitrite NEGATIVE (NEGATIVE) Urine Bilirubin NEGATIVE (NEGATIVE) Urine Urobilinogen 2 (0-1) mg/dL Ur Leukocyte Esterase NEGATIVE (NEGATIVE) Urine WBC (Auto) 3-5 (0-5) /HPF Urine RBC (Auto) NONE (0-2) /HPF U Epithel Cells (Auto) NONE (FEW) /HPF Urine Bacteria (Auto) NONE (NEGATIVE) /HPF Urine Mucus (Auto) SLIGHT (NEGATIVE) /HPF Urine Culture Reflexed NO (NO) Urine Glucose NEGATIVE (NEGATIVE) mg/dL - Progress Progress: improved Counseled pt/family regarding: lab results, diagnosis, need for follow-up, rad results - Departure Departure Disposition: Home Clinical Impression: Hypokalemia due to excessive gastrointestinal loss of potassium, Weakness, Abdominal pain after vaccination Condition: Stable Critical Care Time: No Referrals: MARLENI NORTON MD [Primary Care Provider] - Instructions: Acute Abdomen (Belly Pain), Adult (DC), Hypokalemia (DC), High Potassium Diet, Potassium Test Additional Instructions: ERNESTINE MARX was seen on 05/29/20 n the Emergency Room. At that time you were treated for an emergent condition, during your visit Laboratory, Radiology and/or other procedures may have been ordered. It is very important that you follow-up with your Primary Care Physician MARLENI NORTON MD within the next 24-48 hours to review your Emergency Room visit and the final results of testing that was ordered. Some test results such as Urine Cultures, Blood Cultures, and other cultures if ordered will not be finalized for 24-48 hours. If you do not have a Primary Care Provider please call the medical records department at [phone] ext [phone] to obtain a copy of your results or you may sign into our patient portal to obtain these results by visiting us @ [email or web address] and completing the following steps: 1. Click on the Patient Portal link 2. Click the Patient Self Enrollment Link to complete the enrollment form and entering your 3. Once the enrollment form is completed you will receive an email with a temporary ID and password at the email address you provided. 4. Next choose a user name and password. Your user name must be at least 4 characters long and your password must be at least 4 characters long. 5. Choose a security question from the list and provide your answer to the question. If you already have signed into the Health Portal you may access your Health Care Information 19/11 by the following steps: 1. Login to our website @ [email or web address] 2. Enter your original user name and password. FAQS The [facility] Health Portal is an online tool that contains your Lab Results, Radiology Reports, Visit History, Discharge Instructions and Health Summary Lab and Radiology Results will not be available for 72 hours on the portal. The Portal is a secure site, passwords are encryted and URLs are re-written so they cannot be copied and pasted. You and authorized family members are the only ones who can access your Portal. Also there is a timeout feature that protects your information if you leave the Portal page open. If you have technical difficulty please use the Contact Us link on the page this will allow you to submit any questions you have regarding the Portal or you may contact the Medical Record Department at [phone] ext [phone]. Discharge/Care Plan ERNESTINE MARX was seen on 05/29/20 in the Emergency Room. The patient was counseled regarding Diagnosis,Lab results, Imaging studies, need for follow up and when to return to the Emergency Room. Prescriptions given: Discharge Note I have spoken with the patient and/or caregivers. I have explained the patient's condition, diagnosis and treatment plan based on the information available to me at this time. I have answered the patient's and/or caregiver's questions and addressed any concerns. The patient and/or caregivers have as good understanding of the patient's diagnosis, condition and treatment plan as can be expected at this point. The vital signs have been stable. The patient's condition is stable and appropriate for discharge from the emergency department. The patient will pursue further outpatient evaluation with the primary care physician or other designated or consulting physician as outlined in the discharge instructions. The patient and/or caregivers are agreeable to this plan of care and follow-up instructions have been explained in detail. The patient and/or caregivers have received these instruction. The patient/and or caregivers are aware that any significant change in condition or worsening of symptoms should prompt an immediate return to this or the closest emergency department or call 911. Get Basic metabolic panel test in AM Outpatient Orders: BMP/RENAL PROFILE Time Frame: 1 Day, Facility: [facility], Location: LABORATORY
[2020-05-29 10:06] LABS: Appearance CLEAR (CLEAR); Bilirubin NEGATIVE (NEGATIVE); Blood NEGATIVE Ery/ul (0-5); Glucose NEGATIVE (NEGATIVE); Ketones NEGATIVE (NEGATIVE); Leukocyte Esterase NEGATIVE (NEGATIVE); Mucus SLIGHT /HPF (NEGATIVE); Nitrite NEGATIVE (NEGATIVE); Protein,Urine Dip NEGATIVE (Negative); Specific Gravity 1.012 (1.005-1.025); Urobilinogen 2 mg/dL (0-1)
[2020-05-29 10:06] LABS: Absolute Neutrophil Ct (ANC) 9.91 (1.4-6.9); BASOPHIL % 0.1 % (0.0-0.4); Basophil (Absolute #) 0.01 (0-0.4); Eosinophil % 1.4 % (0.00-5.0); Eosinophil (Absolute #) 0.19 (0-0.5); Hematocrit 42.8 % (35-47); Lymphocytes % 16.4 % (24.0-44.0); Mean Cell Volume 84.4 fl (78-100); Mean Corpuscular Hemoglobin 27.6 pg (26-32); Mean Corpuscular Hgb Concent. 32.7 g/dl (32-36); Mean Platelet Volume 11.2 fl (7.5-11.0); Monocyte (Absolute #) 1.09 (0.0-1.3); Monocytes % 8.1 % (0.0-12.0); Platelet Count 437 K/mm3 (150-450); Red Blood Count 5.07 M/mm3 (4.1-5.4); Red Cell Distribution Width 15.1 % (11.5-14.0); White Blood Count 13.4 K/mm3 (4.0-10.5)
[2020-05-29 10:28] LABS: ALBUMIN 3.9 g/dL (3.5-5.0); ALKALINE PHOSPHATASE 128 U/L (38-126); AMYLASE 34 U/L (30-110); ANION GAP 13.7 MEQ/L (5-15); BLOOD UREA NITROGEN 10 mg/dL (7-17); CHLORIDE 100 mmol/L (98-107); Calcium 8.9 mg/dL (8.4-10.2); Carbon Dioxide 26 mmol/L (22-30); Creatinine 1 1.11 mg/dL (0.52-1.04); EST GLOMERULAR FILTRATION RATE 49.5 ML/MIN; Glucose 156 mg/dL (74-106); LIPASE 62 U/L (23-300); SGOT/AST 17 U/L (14-36); SGPT/ALT 9 U/L (0-35); SODIUM 137 mmol/L (137-145); TROPONIN < 0.012 ng/mL (0.000-0.034); Total Protein 7.4 g/dL (6.3-8.2)
[2020-05-29 10:30] LABS: Potassium 2.8 mmol/L (3.5-5.1)
[2020-05-29] MEDS ORDERED: POTASSIUM CHLORIDE 20 mEq IN WATER 100ML 20 MEQ/100 ML BAG IV ONE (10:36)
[2020-05-29] MEDS ORDERED: POTASSIUM CHLORIDE 20 mEq IN WATER 100ML 100 ML IV ONE (10:42)
[2020-05-29 13:06] VITALS: BP 168/99; PULSE 75; O2SAT 94
--- NOTE | 2020-05-29 16:48 | XRAY ---
Indication: Abdomen pain, distention, nausea, and constipation. Comparison: Chest exam September 24, 2018. 2 view abdomen demonstrates nonspecific nonobstructed bowel gas pattern with little scattered fecal debris. Tiny gallstones and scattered vascular calcifications. Osseous structures intact with osteopenia and minimal degenerative changes. Single PA chest demonstrates minimal bibasilar fibrosis/scarring. Remaining heart and lungs unremarkable. Bony thorax intact with mild osteopenia and degenerative changes. Impression: 1. Gallstones better evaluated with ultrasound if clinically warranted. 2. Nonacute one view chest with chronic features.
== END 2020-05-29 13:24 | disposition home or self-care (01) ==
LOC: ED 09:27
DX: R10.9 Unspecified abdominal pain (principal); I10 Essential (primary) hypertension; E87.6 Hypokalemia; E11.9 Type 2 diabetes mellitus without complications; I50.9 Heart failure, unspecified; E78.5 Hyperlipidemia, unspecified; Z79.899 Other long term (current) drug therapy
CPT/HCPCS: 36000; 36415; 74022; 80053; 81001; 82150; 83690; 84484; 85025; 93005; 96360; 96365; 96374; 99284; J3480

== ENCOUNTER 2020-07-18 16:29 | Emergency (ER) | payer MEDICARE, OTHER ==
[2020-07-18 17:58] LABS: Absolute Neutrophil Ct (ANC) 5.98 (1.4-6.9); BASOPHIL % 0.2 % (0.0-0.4); Basophil (Absolute #) 0.02 (0-0.4); Eosinophil % 1.7 % (0.00-5.0); Eosinophil (Absolute #) 0.16 (0-0.5); Hematocrit 39.1 % (35-47); Hemoglobin 12.7 gm/dl (12.0-16.0); Lymphocyte (Absolute #) 2.79 (1.0-4.6); Lymphocytes % 28.9 % (24.0-44.0); Mean Cell Volume 86.9 fl (78-100); Mean Corpuscular Hemoglobin 28.2 pg (26-32); Mean Corpuscular Hgb Concent. 32.5 g/dl (32-36); Mean Platelet Volume 10.8 fl (7.5-11.0); Monocytes % 7.3 % (0.0-12.0); Neutrophil % 61.9 % (36.0-66.0); Platelet Count 398 K/mm3 (150-450); Red Cell Distribution Width 15.5 % (11.5-14.0); White Blood Count 9.7 K/mm3 (4.0-10.5)
[2020-07-18 18:09] LABS: ALBUMIN 3.4 g/dL (3.5-5.0); ANION GAP 12.1 MEQ/L (5-15); Calcium 8.5 mg/dL (8.4-10.2); Creatinine 1 1.05 mg/dL (0.52-1.04); EST GLOMERULAR FILTRATION RATE 52.7 ML/MIN; Potassium 3.5 mmol/L (3.5-5.1); Total Protein 6.5 g/dL (6.3-8.2)
--- NOTE | 2020-07-18 19:28 | ERPHSYRPT ---
- History of Present Illness Source: patient Exam Limitations: other (Very poor historian) Patient Subjective Stated Complaint: Dizziness Triage Nursing Assessment: Patient brought back to ED via w/c and transferred self to bed. Patient A+O X3. Patient's skin pink, warm and dry. Patient complains of dizziness for the past few days. Patient states when she stands up everything around her is spinning almost causing her to fall. Patient denies pain or discomfort. Physician History: 85 yo wf w h/o dizziness for several years presents w worsening dizziness x 1wk and generalized lethargy. Pt has dementia and is a very poor historian. History through pt's daughter who is also a poor historian. Pt denies focal weakness/Chest pain/Fever/N/V/D/melena/hematochezia/dysuria/hematuria. Timing/Duration: other (1+wk) Severity: mild Character of Deficits: new weakness (FGeneralized weakness) Deficits: cannot stand, cannot walk, off balance, unable to stand Baseline/Normal Cognition: alert 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 Current Cognition: alert 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 Baseline Gait: walks only w/assistance Associated Symptoms: confusion, fatigue, weakness, trouble walking, No fever, No chills, No loss of consciousness, No nausea, No vomiting, No insomnia, No muscle spasms, No numbness/tingling in legs/feet, No paresthesia, No ringing in ears, No seizures, No slurred speech, No vision changes, No chest pain, No headache Allergies/Adverse Reactions: No Known Drug Allergies Allergy (Verified 07/18/20 17:26) Home Medications: Glipizide [Glipizide ER] 10 mg PO DAILY 09/24/18 [History] Levothyroxine Sodium 150 Mcg [Synthroid 150 Mcg] 150 mcg PO 0600 09/24/18 [History] Losartan Potassium [Cozaar] 50 mg PO BID 09/24/18 [History] Pravastatin Sodium [Pravachol] 80 mg PO HS 09/24/18 [History] Amlodipine Besylate 5 mg [Norvasc 5 mg] 2.5 mg PO DAILY 04/27/20 [History] Escitalopram Oxalate 10 mg [Lexapro 10 MG] 20 mg PO DAILY 04/27/20 [History] Furosemide 40 mg [Lasix 40 MG] 40 mg PO DAILY 04/27/20 [History] PANTOPRAZOLE 40 mg Tablet [Protonix 40MG Tablet] 40 mg PO QAM 04/27/20 [History] Potassium Chloride 10 Meq Tab* [Klor Con 10 MEQ] 10 meq PO DAILY 04/27/20 [History] Hx Tetanus, Diphtheria Vaccination/Date Given: No Hx Influenza Vaccination/Date Given: Yes Hx Pneumococcal Vaccination/Date Given: Yes Immunizations Up to Date: Yes Travel Risk - International Travel Have you traveled outside of the country in past 3 weeks: No - Coronavirus Screening Are you exhibiting any of the following symptoms?: No Close contact with a COVID-19 positive Pt in past 14-21 Days: No - Review of Systems Constitutional: No Symptoms, Lethargy, Weakness Eyes: No Symptoms Ears, Nose, & Throat: No Symptoms Respiratory: No Symptoms Cardiac: No Symptoms Abdominal/Gastrointestinal: No Symptoms Genitourinary Symptoms: No Symptoms Musculoskeletal: No Symptoms Skin: No Symptoms Neurological: No Symptoms, Dizziness Psychological: No Symptoms Endocrine: No Symptoms Hematologic/Lymphatic: No Symptoms Immunological/Allergic: No Symptoms - Past Medical History Pertinent Past Medical History: Yes Neurological History: Stroke, TIA ENT History: No Pertinent History Cardiac History: High Cholesterol, Hypertension Respiratory History: No Pertinent History Endocrine Medical History: Diabetes Type II Musculoskeletal History: Arthritis GI Medical History: GERD History: Renal Disease Psycho-Social History: Anxiety, Depression Female Reproductive Disorders: No Pertinent History - Past Surgical History Past Surgical History: Yes Neuro Surgical History: No Pertinent History Cardiac: No Pertinent History Respiratory: No Pertinent History Gastrointestinal: No Pertinent History Genitourinary: No Pertinent History Musculoskeletal: No Pertinent History Female Surgical History: Hysterectomy - Social History Smoking Status: Never smoker Exposure to second hand smoke: Yes Drug Use: none Patient Lives Alone: No Significant Family History: no pertinent family hx - Female History Hx Now: No - Nursing Vital Signs Nursing Vital Signs: Initial Vital Signs Temperature 98.0 F 07/18/20 17:27 Pulse Rate 63 07/18/20 17:27 Respiratory Rate 18 07/18/20 17:27 Blood Pressure 147/75 07/18/20 17:27 O2 Sat by Pulse Oximetry 95 07/18/20 17:27 Pain Scale Pain Intensity 5 - [place] Coma Scale Best Eye Response ([place]): (4) open spontaneously Best Verbal Response (Kayla): (5) oriented Best Motor Response (Kayla): (6) obeys commands Kayla Total: 15 - Physical Exam General Appearance: no apparent distress Eye Exam: bilateral eye: normal inspection, PERRL, EOMI Ears, Nose, Throat Exam: normal ENT inspection, TMs normal, pharynx normal, moist mucous membranes Neck Exam: normal inspection, non-tender, supple, full range of motion, No meningismus, No mass, No Brudzinski, No Kernig's Respiratory: normal breath sounds, lungs clear Cardiovascular: regular rate/rhythm, normal heart sounds, No murmur Gastrointestinal: soft, normal bowel sounds, No tenderness Pelvic Exam: not done Back Exam: normal inspection, normal range of motion, CVA tenderness, No vertebral tenderness Peripheral Pulses: carotid (R): 2+, carotid (L): 2+ Mental Status: alert, 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, cooperative paste maker Exam: normal hearing, normal speech, PERRL Motor/Sensory: no motor deficit, no sensory deficit, no pronator drift, negative Babinski's sign DTR: bicep (R): 2+, bicep (L): 2+ Skin Exam: normal color SpO2 Interpretation: normal SpO2: 95 O2 Delivery: Room Air - Course Nursing assessment & vital signs reviewed: Yes EKG Interpreted by Me: RATE (NSR/R64/Old inferior LA/Old anterior LA) - CT Exams Head CT Interpretation: Discussed w/radiologist (CTA head/[id number]-Viz-[id number] senile brain/B ICA calcification, minimal B carotid bulb calcification) Ordered Tests: Active Orders 24 hr Category Date Time Status EKG-ER Only STAT Care 07/18/20 17:41 Completed CTA HEAD W AND/OR WO CONTRAST [CT] Stat Exams 07/18/20 18:59 Taken NECK WITH CONTRAST [CT] Stat Exams 07/18/20 19:00 Taken CBC W DIFF Stat Lab 07/18/20 17:57 Completed CMP Stat Lab 07/18/20 17:57 Completed UA W/RFX UR CULTURE Stat Lab 07/18/20 19:40 Completed Lab/Rad Data: Laboratory Result Diagrams 07/18/20 17:57 07/18/20 17:57 Laboratory Results 03/22/21 03/22/21 03/22/21 Range/Units 19:40 17:57 17:57 WBC (4.0-10.5) K/mm3 RBC (4.1-5.4) M/mm3 Hgb (12.0-16.0) gm/dl Hct (35-47) % MCV (78-100) fl MCH (26-32) pg MCHC (32-36) g/dl RDW (11.5-14.0) % Plt Count (150-450) K/mm3 MPV (7.5-11.0) fl Gran % (36.0-66.0) % Eos # (Auto) (0-0.5) Absolute Lymphs (auto) (1.0-4.6) Absolute Monos (auto) (0.0-1.3) Lymphocytes % (24.0-44.0) % Monocytes % (0.0-12.0) % Eosinophils % (0.00-5.0) % Basophils % (0.0-0.4) % Absolute Granulocytes (1.4-6.9) Basophils # (0-0.4) Sodium 137 (137-145) mmol/L Potassium 3.5 (3.5-5.1) mmol/L Chloride 105 (98-107) mmol/L Carbon Dioxide 24 (22-30) mmol/L Anion Gap 12.1 (5-15) MEQ/L BUN 10 (7-17) mg/dL Creatinine 1.05 H (0.52-1.04) mg/dL Estimated GFR 52.7 ML/MIN Glucose 164 H (74-106) mg/dL Calcium 8.5 (8.4-10.2) mg/dL Total Bilirubin 1.00 (0.2-1.3) mg/dL AST 18 (14-36) U/L ALT 10 (0-35) U/L Alkaline Phosphatase 98 (38-126) U/L Troponin 0.00 (0.00-0.03) ng/mL Serum Total Protein 6.5 (6.3-8.2) g/dL Albumin 3.4 L (3.5-5.0) g/dL Urine Color STRAW (YELLOW) Urine Appearance CLEAR (CLEAR) Urine pH 5.0 (5-6) Ur Specific [place] 1.005 (1.005-1.025) Urine Protein NEGATIVE (Negative) Urine Ketones NEGATIVE (NEGATIVE) Urine Blood NEGATIVE (0-5) Miko/ul Urine Nitrite NEGATIVE (NEGATIVE) Urine Bilirubin NEGATIVE (NEGATIVE) Urine Urobilinogen NEGATIVE (0-1) mg/dL Ur Leukocyte Esterase NEGATIVE (NEGATIVE) Urine WBC (Auto) NONE (0-5) /HPF Urine RBC (Auto) NONE (0-2) /HPF U Epithel Cells (Auto) NONE (FEW) /HPF Urine Bacteria (Auto) NONE (NEGATIVE) /HPF Urine Mucus (Auto) SLIGHT (NEGATIVE) /HPF Urine Culture Reflexed NO (NO) Urine Glucose NEGATIVE (NEGATIVE) mg/dL 07/18/20 Range/Units 17:57 WBC 9.7 (4.0-10.5) K/mm3 RBC 4.50 (4.1-5.4) M/mm3 Hgb 12.7 (12.0-16.0) gm/dl Hct 39.1 (35-47) % MCV 86.9 (78-100) fl MCH 28.2 (26-32) pg MCHC 32.5 (32-36) g/dl RDW 15.5 H (11.5-14.0) % Plt Count 398 (150-450) K/mm3 MPV 10.8 (7.5-11.0) fl Gran % 61.9 (36.0-66.0) % Eos # (Auto) 0.16 (0-0.5) Absolute Lymphs (auto) 2.79 (1.0-4.6) Absolute Monos (auto) 0.70 (0.0-1.3) Lymphocytes % 28.9 (24.0-44.0) % Monocytes % 7.3 (0.0-12.0) % Eosinophils % 1.7 (0.00-5.0) % Basophils % 0.2 (0.0-0.4) % Absolute Granulocytes 5.98 (1.4-6.9) Basophils # 0.02 (0-0.4) Sodium (137-145) mmol/L Potassium (3.5-5.1) mmol/L Chloride (98-107) mmol/L Carbon Dioxide (22-30) mmol/L Anion Gap (5-15) MEQ/L BUN (7-17) mg/dL Creatinine (0.52-1.04) mg/dL Estimated GFR ML/MIN Glucose (74-106) mg/dL Calcium (8.4-10.2) mg/dL Total Bilirubin (0.2-1.3) mg/dL AST (14-36) U/L ALT (0-35) U/L Alkaline Phosphatase (38-126) U/L Troponin (0.00-0.03) ng/mL Serum Total Protein (6.3-8.2) g/dL Albumin (3.5-5.0) g/dL Urine Color (YELLOW) Urine Appearance (CLEAR) Urine pH (5-6) Ur Specific [place] (1.005-1.025) Urine Protein (Negative) Urine Ketones (NEGATIVE) Urine Blood (0-5) Miko/ul Urine Nitrite (NEGATIVE) Urine Bilirubin (NEGATIVE) Urine Urobilinogen (0-1) mg/dL Ur Leukocyte Esterase (NEGATIVE) Urine WBC (Auto) (0-5) /HPF Urine RBC (Auto) (0-2) /HPF U Epithel Cells (Auto) (FEW) /HPF Urine Bacteria (Auto) (NEGATIVE) /HPF Urine Mucus (Auto) (NEGATIVE) /HPF Urine Culture Reflexed (NO) Urine Glucose (NEGATIVE) mg/dL - Progress Progress Note: 07/19/20 00:17 Spoke w pt's daughter about results. Related that pt had no acute CVA/evidence of infection/Mi or cardiac arrythmia. Counseled pt/family regarding: lab results, diagnosis, need for follow-up, rad results - Departure Departure Disposition: Home Clinical Impression: Weakness, Dementia, Dizziness Condition: Fair Critical Care Time: No Referrals: MARLENI MAJANO MD [Primary Care Provider] - Instructions: Fatigue (DC), Dizziness, Nonvertigo, (DC), Generalized Weakness Additional Instructions: Follow up with Dr. Gibbons in AM Return to ER for focal weakness or temperature greater than 100.5 Spoke w Love Cadet(daughter), related that mother has dementia/chronic weakness/chronic dizziness and needs follow up with Dr. Majano in AM
[2020-07-18 19:52] LABS: Appearance CLEAR (CLEAR); Bilirubin NEGATIVE (NEGATIVE); Blood NEGATIVE Ery/ul (0-5); Glucose NEGATIVE (NEGATIVE); Ketones NEGATIVE (NEGATIVE); Leukocyte Esterase NEGATIVE (NEGATIVE); Mucus SLIGHT /HPF (NEGATIVE); Nitrite NEGATIVE (NEGATIVE); Protein,Urine Dip NEGATIVE (Negative); Specific Gravity 1.005 (1.005-1.025); Urobilinogen NEGATIVE mg/dL (0-1)
[2020-07-18 22:09] VITALS: BP 181/121
[2020-07-18 22:25] VITALS: O2SAT 95
[2020-07-18 23:59] VITALS: PULSE 62
--- NOTE | 2020-07-19 09:12 | XRAY ---
Indication: Dizziness. Conventional contrast enhanced CTA neck was performed using 80 cc Isovue 370 contrast. Two-dimensional sagittal and coronal reformatted images obtained. Comparison: None Visualized aortic arch demonstrates mild arteriosclerotic calcifications without aneurysm/dissection. Normal branching right brachiocephalic, left common carotid, and left subclavian arteries without critical stenosis/obstruction. Both common carotid arteries are tortuous with mild calcifications at the level of the bulb. Minimal calcifications extend into the origin of the left internal carotid artery. Remaining internal and external carotid arteries are normal in CTA appearance. Vertebral arteries are bilaterally symmetric with very minimal scattered calcifications. No critical stenosis, obstruction, or AV malformation. Visualized soft tissues demonstrates centimeter/subcentimeter cervical and submandibular lymph nodes bilaterally. No pathologic lymphadenopathy. Thyroid gland demonstrates mild heterogeneity with 8 mm left lobe hypodense nodule/cyst. Supra and infraglottic airway widely patent. Visualized osseous structures intact with osteopenia and moderate multilevel cervical degenerative changes. Patient is edentulous. CTA head reported separately. Impression: 1. CTA neck with contrast exam demonstrates minimal/mild scattered arteriosclerotic calcifications without critical stenosis/obstruction. 2. Incidental soft tissue and bony findings as detailed above.
--- NOTE | 2020-07-19 09:16 | XRAY ---
Indication: Dizziness. Conventional contrast enhanced CTA head was performed prior to and following 80 cc Isovue 370 contrast. Two-dimensional sagittal and coronal reformatted images obtained. Comparison: CT head May 03, 2020. Distal internal carotid arteries are bilaterally symmetric with mild calcifications of the parasellar segments. No critical stenosis/obstruction. Normal carotid terminus with normal branching A1 and M1 segments bilaterally. More distal anterior cerebral, middle cerebral, anterior communicating, and posterior communicating arteries are normal in CTA appearance. Posterior circulation demonstrates normal CTA appearance to the basilar artery with normal branching posterior cerebral, superior cerebellar, and anterior inferior cerebellar arteries bilaterally. Whole brain images demonstrate stable age-appropriate global atrophy and moderate/advanced prevention degenerative micro-ischemia. Fourth ventricle is midline without hydrocephalus. No abnormal enhancing intra or extra-axial mass. Bony calvarium intact. Minimal mucosal thickening seen of the anterior left maxillary sinus. Remaining paranasal sinuses and mastoid air cells are clear. Impression: 1. Minimal calcifications of the parasellar internal carotid arteries bilaterally without critical stenosis/obstruction. 2. Remaining CTA head with contrast exam is negative. 3. Stable atrophy and degenerative micro-ischemia.
== END 2020-07-18 23:45 | disposition home or self-care (01) ==
LOC: ED 16:29
DX: R53.1 Weakness (principal); F03.90 Unspecified dementia, unspecified severity, without behavioral disturbance, psychotic disturbance, mood disturbance, and anxiety; R42 Dizziness and giddiness; Z79.899 Other long term (current) drug therapy
CPT/HCPCS: 36000; 36415; 70491; 70496; 70498; 80053; 81001; 84484; 85025; 93005; 99284

== ENCOUNTER 2022-04-23 15:44 | Observation (INO) | payer MEDICARE, OTHER ==
--- NOTE | 2022-04-23 16:10 | XRAY ---
Indication: Left-sided weakness. Stroke. Multiple contiguous axial images obtained through the head without contrast. Comparison: May 03, 2020 Again age-appropriate global atrophy and moderate/advanced periventricular degenerative micro-ischemia bilaterally. No acute intracranial hemorrhage, abnormal extra-axial fluid collection, or mass effect. Fourth ventricle is midline without hydrocephalus. Bony calvarium intact. Visualized paranasal sinuses and mastoid air cells are clear. Impression: Continued nonacute senile brain.
[2022-04-23 16:51] LABS: Absolute Neutrophil Ct (ANC) 4.63 x10^3/uL (1.4-6.9); Basophil (Absolute #) 0.02 x10^3/uL (0-0.4); Eosinophil (Absolute #) 0.26 x10^3/uL (0-0.5); Hematocrit 37.2 % (35-47); Hemoglobin 11.6 g/dL (12.0-16.0); Lymphocyte (Absolute #) 3.04 x10^3/uL (1.0-4.6); Lymphocytes % 35.6 % (24.0-44.0); Mean Corpuscular Hemoglobin 24.3 pg (26-32); Mean Corpuscular Hgb Concent. 31.2 g/dL (32-36); Mean Platelet Volume 10.5 fL (7.5-11.0); Monocyte (Absolute #) 0.57 x10^3/uL (0.0-1.3); Monocytes % 6.7 % (0.0-12.0); Neutrophil % 54.1 % (36.0-66.0); Platelet Count 437 x10^3/uL (150-450); Red Blood Count 4.77 x10^6/uL (4.1-5.4); Red Cell Distribution Width 16.3 % (11.5-14.0); White Blood Count 8.6 x10^3/uL (4.0-10.5)
[2022-04-23 16:53] LABS: ALBUMIN 3.8 g/dL (3.5-5.0); ANION GAP 10.4 MEQ/L (5-15); BILIRUBIN,TOTAL 0.8 mg/dL (0.2-1.3); Calcium 8.6 mg/dL (8.4-10.2); Creatinine 1 1.05 mg/dL (0.52-1.04); EST GLOMERULAR FILTRATION RATE 52.6 ML/MIN; Potassium 4.2 mmol/L (3.5-5.1); Total Protein 7.5 g/dL (6.3-8.2)
[2022-04-23 16:55] LABS: INR 0.99 (0.8-3.0); PROTIME 10.5 SECONDS (9.4-12.5); PTT 25.1 SECONDS (25.1-36.5)
[2022-04-23] MEDS ORDERED: PLAVIX Tablet PO ONE (17:59)
[2022-04-23] MEDS ORDERED: TYLENOL EXTRA STRENGTH 500 MG PO STA (17:59)
[2022-04-23] MEDS ORDERED: PLAVIX Tablet ONE (18:12)
[2022-04-23] MEDS ORDERED: BABY ASPIRIN 81 MG CHEW ONE (18:12)
[2022-04-23] MEDS ORDERED: TYLENOL EXTRA STRENGTH 500 MG ONE (18:12)
[2022-04-23] MEDS ORDERED: BABY ASPIRIN 81 MG CHEW PO ONE (18:22)
[2022-04-23 18:51] LABS: Appearance CLEAR (CLEAR)
[2022-04-23 18:52] LABS: Bilirubin NEGATIVE (NEGATIVE); Dipstick done @ ? MAIN LAB; Glucose 500 mg/dL (NEGATIVE); Ketones NEGATIVE (NEGATIVE); Nitrite NEGATIVE (NEGATIVE); Protein,Urine Dip NEGATIVE (Negative); RBC NEGATIVE Ery/ul (0-5); Urobilinogen 0.2 mg/dL (0-1)
[2022-04-23 19:01] LABS: Bacteria FEW /HPF (NEGATIVE); Mucus SLIGHT /HPF (NEGATIVE); RBC 0-2 /HPF (0-2); WBC 51-100 /HPF (0-5)
[2022-04-23 19:02] LABS: Urine Cultured Indicated? YES
--- NOTE | 2022-04-23 19:13 | ERPHSYRPT ---
- History of Present Illness Source: patient, EMS, snf records Exam Limitations: clinical condition Patient Subjective Stated Complaint: Pt was noticed at approx 1415 to have left sided weakness with left sided facial droop, last known well was earlier this morning Triage Nursing Assessment: Pt brought to the ER by EMS, hypertensive, bradycardic, denies pain, left sided weakness, left sided facrial droop, denies hx of anything like this before, pulses normal, skin n/w/d Physician History: 86yo F BIBA after being found altered w/ slurred speech and left sided weakness. She lives at a snf and last known normal was early this morning. She was found symptomatic after 1400. On presentation to the ER she was already outside the window for tPA treatment. Patient minimally able to answer questions during the evaluation w/ continued speech difficulties. Timing/Duration: today Severity: severe Character of Deficits: new weakness, altered sensation, impaired speech, impaired swallowing, Left Facial, LLE, LUE Deficits: cannot stand, cannot walk, weak Baseline/Normal Cognition: alert 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 Current Cognition: alert 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 Baseline Gait: uses walker Associated Symptoms: weakness, slurred speech, trouble walking, headache, No fever, No chills, No loss of consciousness, No nausea, No vomiting, No numbness/tingling in legs/feet, No paresthesia, No seizures, No vision changes, No chest pain Allergies/Adverse Reactions: No Known Drug Allergies Allergy (Verified 04/23/22 16:24) Home Medications: Levothyroxine Sodium 150 Mcg [Synthroid 150 Mcg] 137 mcg PO 0600 09/24/18 [History] glipiZIDE [Glipizide ER] 10 mg PO DAILY 09/24/18 [History] Amlodipine Besylate 5 mg [Norvasc 5 mg] 5 mg PO DAILY 04/27/20 [History] Escitalopram Oxalate [Lexapro] 10 mg PO DAILY 04/27/20 [History] PANTOPRAZOLE 40 mg Tablet [Protonix 40MG Tablet] 40 mg PO QAM 04/27/20 [History] Potassium Chloride Tab* [Klor Con] 20 meq PO DAILY 04/27/20 [History] Buspirone HCl 5 mg [Buspar 5 mg] 10 mg PO BID 04/23/22 [History] Dapagliflozin Propanediol [Farxiga] 5 mg PO DAILY 04/23/22 [History] Acetaminophen 325 mg [Tylenol 325 mg] 650 mg PO UD 04/24/22 [History] Acetaminophen 500 mg [Tylenol Extra Strength 500 mg] 1,000 mg PO Q8HPRN PRN 04/24/22 [History] Glucagon [Baqsimi] 3 mg IH UD PRN 04/24/22 [History] Loperamide HCl 2 mg [Imodium 2 mg] 2 mg PO Q4HPRN PRN 04/24/22 [History] Hx Tetanus, Diphtheria Vaccination/Date Given: No Hx Influenza Vaccination/Date Given: Yes Hx Pneumococcal Vaccination/Date Given: Yes Travel Risk - International Travel Have you traveled outside of the country in past 3 weeks: No - Coronavirus Screening Are you exhibiting any of the following symptoms?: No Close contact with a COVID-19 positive Pt in past 14-21 Days: No - Vaccine Status Have you recieved a Covid-19 vaccination: No - Review of Systems Constitutional: Fatigue, Lethargy, Malaise, Weakness, No Fever, No Chills Eyes: No Symptoms Ears, Nose, & Throat: No Symptoms Respiratory: No Symptoms Cardiac: No Symptoms Abdominal/Gastrointestinal: No Symptoms Genitourinary Symptoms: No Symptoms Musculoskeletal: No Symptoms Skin: No Symptoms Neurological: Focal Weakness (left side), Gait Changes (unable to ambulate), Headache, Paralysis, Speech Changes, No Dizziness, No Seizure, No Sensory Changes Psychological: No Symptoms Endocrine: No Symptoms Hematologic/Lymphatic: No Symptoms Immunological/Allergic: No Symptoms All Other Systems: Reviewed and Negative - Past Medical History Pertinent Past Medical History: Yes Neurological History: Stroke, TIA ENT History: No Pertinent History Cardiac History: High Cholesterol, Hypertension Respiratory History: No Pertinent History Endocrine Medical History: Diabetes Type II Musculoskeletal History: Arthritis GI Medical History: GERD History: Renal Disease Psycho-Social History: Anxiety, Depression Female Reproductive Disorders: No Pertinent History - Past Surgical History Past Surgical History: Yes Neuro Surgical History: No Pertinent History Cardiac: No Pertinent History Respiratory: No Pertinent History Gastrointestinal: No Pertinent History Genitourinary: No Pertinent History Musculoskeletal: No Pertinent History Female Surgical History: Hysterectomy - Social History Smoking Status: Never smoker Exposure to second hand smoke: No Drug Use: none Patient Lives Alone: No Significant Family History: no pertinent family hx - Nursing Vital Signs Nursing Vital Signs: Initial Vital Signs Temperature 97.1 F 04/23/22 16:00 Pulse Rate 57 L 04/23/22 16:00 Respiratory Rate 13 04/23/22 16:00 Blood Pressure 167/70 04/23/22 16:00 O2 Sat by Pulse Oximetry 100 04/23/22 16:00 Pain Scale Pain Intensity 0 - Arnold Coma Scale Best Eye Response (Kayla): (4) open spontaneously Best Verbal Response (Kayla): (5) oriented Best Motor Response (Kayla): (6) obeys commands Arnold Total: 15 - Physical Exam General Appearance: mild distress Eye Exam: bilateral eye: normal inspection, PERRL, EOMI Ears, Nose, Throat Exam: normal ENT inspection Neck Exam: normal inspection, non-tender, supple, full range of motion Respiratory: normal breath sounds, lungs clear Cardiovascular: regular rate/rhythm, normal heart sounds Gastrointestinal: soft, No tenderness Extremity Exam: normal inspection, No calf tenderness, No karishma's sign Mental Status: alert, 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, 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 Exam: normal hearing, abnormal speech, facial asymmetry, facial droop, facial weakness, tongue midline Coordination/Gait: ABN nose to finger (L), No normal gait Motor/Sensory: negative Babinski's sign, pronator drift (L), weak motor strength LUE, weak motor strength LLE DTR: bicep (L): 1+, knee (L): 1+ Skin Exam: normal color, warm, dry, No rash SpO2 Interpretation: normal SpO2: 98 O2 Delivery: Room Air - Course Nursing assessment & vital signs reviewed: Yes EKG Interpreted by Me: RATE (59), Sinus Rhythm, NORMAL AXIS, NORMAL INTERVALS, NORMAL QRS, Other (old t wave changes in inferior lead similar to previous) - CT Exams Head CT Interpretation: Negative Other CT Interpretation: Negative (CTA head/neck neg for emboli) Ordered Tests: Medication Summary Discontinued Medications Generic Name Dose Route Start Last Admin Trade Name Freq PRN Reason Stop Dose Admin Acetaminophen 500 mg 04/23/22 17:59 04/23/22 18:14 Acetaminophen 500 Mg Tablet PO 04/23/22 18:00 500 mg STAT STA Administration Acetaminophen Confirm 04/23/22 18:12 Acetaminophen 500 Mg Tablet Administered 04/23/22 18:13 Dose 500 mg .ROUTE .STK-MED ONE Acetaminophen 650 mg 04/24/22 02:01 Acetaminophen 325 Mg Tablet PO 05/24/22 02:00 Q4H PRN PRN PAIN AND/OR FEVER Acetaminophen 1,000 mg 04/24/22 17:32 Acetaminophen 500 Mg Tablet PO 05/24/22 17:31 Q8HPRN PRN PAIN Acetaminophen 650 mg 04/24/22 18:00 Acetaminophen 325 Mg Tablet PO 05/24/22 17:59 UD DOTTIE Amlodipine Besylate 5 mg 04/25/22 10:00 04/25/22 12:02 Amlodipine Besylate 5 Mg Tablet PO 05/25/22 09:59 Not Given DAILY [facility] Aspirin 81 mg 04/24/22 10:00 04/25/22 12:01 Aspirin 81 Mg Tablet.Ec PO 05/24/22 09:59 Not Given DAILY [facility] Aspirin Confirm 04/23/22 18:12 Aspirin 81 Mg Tab.Chew Administered 04/23/22 18:13 Dose 81 mg .ROUTE .STK-MED ONE Aspirin 81 mg 04/23/22 18:22 04/23/22 18:23 Aspirin 81 Mg Tab.Chew PO 04/23/22 18:23 81 mg STAT ONE Administration Buspirone HCl 10 mg 04/24/22 22:00 04/25/22 12:02 Buspirone Hcl 5 Mg Tablet PO 05/24/22 21:59 Not Given BID [facility] Clopidogrel Bisulfate 75 mg 04/23/22 17:59 04/23/22 18:14 Clopidogrel Bisulfate 75 Mg Tablet PO 04/23/22 18:00 75 mg STAT ONE Administration Clopidogrel Bisulfate Confirm 04/23/22 18:12 Clopidogrel Bisulfate 75 Mg Tablet Administered 04/23/22 18:13 Dose 75 mg .ROUTE .STK-MED ONE Escitalopram Oxalate 10 mg 04/25/22 10:00 04/25/22 12:02 Escitalopram Oxalate 10 Mg Tablet PO 05/25/22 09:59 Not Given DAILY [facility] Famotidine 20 mg 04/24/22 02:01 04/25/22 12:01 Famotidine 20 Mg/1 Vial IV 05/24/22 02:00 20 mg Q12HT DOTTIE Administration Glipizide 10 mg 04/25/22 10:00 04/25/22 12:02 Glipizide Xl Mg 10 Mg Tab PO 05/25/22 09:59 Not Given DAILY DOTTIE Ceftriaxone Sodium/Dextrose 1 g in 50 mls @ 100 mls/hr 04/24/22 22:00 04/24/22 22:15 Rocephin 1 Gm-D5w 50 Ml Bag IV 04/28/22 21:59 100 mls/hr Q24H10 DOTTIE Administration Ceftriaxone Sodium/Dextrose 1 g in 50 mls @ 100 mls/hr 04/25/22 22:00 Rocephin 1 Gm-D5w 50 Ml Bag IV 04/28/22 21:59 Q24H22 DOTTIE Levothyroxine Sodium 137 mcg 04/25/22 06:00 Levothyroxine Sodium 150 Mcg Tablet PO 05/25/22 05:59 0600 DOTTIE Levothyroxine Sodium 112 mcg 04/25/22 06:00 04/25/22 02:11 Levothyroxine Sodium 112 Mcg Tablet PO 05/25/22 05:59 Not Given 0600 DOTTIE Levothyroxine Sodium 25 mcg 04/25/22 06:00 04/25/22 02:11 Levothyroxine Sodium 25 Mcg Tablet PO 05/25/22 05:59 Not Given 0600 DOTTIE Loperamide HCl 2 mg 04/24/22 17:32 Loperamide Hcl 2 Mg Capsule PO 05/24/22 17:31 Q4HPRN PRN LOOSE STOOLS Lorazepam 1 mg 04/25/22 09:00 Lorazepam 2 Mg/1 Ml 2 Mg Vial IV 04/25/22 09:01 1XONLY ONE Lorazepam 1 mg 04/25/22 09:45 04/25/22 12:02 Lorazepam 2 Mg/1 Ml 2 Mg Vial IV 04/25/22 09:46 1 mg ONCE ONE Administration Miscellaneous Information 1 each 04/24/22 17:45 Medication Intervention 1 Each Each 05/24/22 17:44 .RN TO CHECK DOTTIE Miscellaneous Information 1 each 04/24/22 17:45 Medication Intervention 1 Each Each 05/24/22 17:44 .RN TO CHECK DOTTIE Pantoprazole Sodium 40 mg 04/25/22 10:00 04/25/22 12:02 Protonix (Pantoprazole) 40 Mg Tablet PO 05/25/22 09:59 Not Given QAM DOTTIE Potassium Chloride 20 meq 04/25/22 10:00 04/25/22 12:01 Potassium Chloride Tab 10 Meq Tab PO 05/25/22 09:59 Not Given DAILY DOTTIE Simvastatin 40 mg 04/24/22 22:00 04/25/22 02:10 Simvastatin 20 Mg Tablet PO 05/24/22 21:59 Not Given HS DOTTIE Lab/Rad Data: Laboratory Result Diagrams 04/23/22 16:00 04/23/22 16:00 Laboratory Results 04/23/22 04/23/22 04/23/22 Range/Units 19:45 18:18 16:15 WBC (4.0-10.5) x10^3/uL RBC (4.1-5.4) x10^6/uL Hgb (12.0-16.0) g/dL Hct (35-47) % MCV (78-100) fL MCH (26-32) pg MCHC (32-36) g/dL RDW (11.5-14.0) % Plt Count (150-450) x10^3/uL MPV (7.5-11.0) fL Gran % (36.0-66.0) % Immature Gran % (Auto) (0.00-0.4) % Nucleat RBC Rel Count (0.00-0.1) % Eos # (Auto) (0-0.5) x10^3/uL Immature Gran # (Auto) (0.00-0.03) x10^3u/L Absolute Lymphs (auto) (1.0-4.6) x10^3/uL Absolute Monos (auto) (0.0-1.3) x10^3/uL Absolute Nucleated RBC (0.00-0.01) x10^3u/L Lymphocytes % (24.0-44.0) % Monocytes % (0.0-12.0) % Eosinophils % (0.00-5.0) % Basophils % (0.0-0.4) % Absolute Granulocytes (1.4-6.9) x10^3/uL Basophils # (0-0.4) x10^3/uL PT (9.4-12.5) SECONDS INR (0.8-3.0) APTT (25.1-36.5) SECONDS Sodium (137-145) mmol/L Potassium (3.5-5.1) mmol/L Chloride (98-107) mmol/L Carbon Dioxide (22-30) mmol/L Anion Gap (5-15) MEQ/L BUN (7-17) mg/dL Creatinine (0.52-1.04) mg/dL Estimated GFR ML/MIN Glucose (74-106) mg/dL Lactic Acid 1.5 (0.4-2.0) Calcium (8.4-10.2) mg/dL Total Bilirubin (0.2-1.3) mg/dL AST (14-36) U/L ALT (0-35) U/L Alkaline Phosphatase (38-126) U/L Serum Total Protein (6.3-8.2) g/dL Albumin (3.5-5.0) g/dL Urinalys Dipstick Clnc MAIN LAB Urine Color YELLOW (YELLOW) Urine Appearance CLEAR (CLEAR) Urine pH 6.0 (5-6) Ur Specific [place] 1.010 (1.005-1.025) POC Urine Protein Conf NEGATIVE (Negative) Urine Ketones NEGATIVE (NEGATIVE) Urine Nitrite NEGATIVE (NEGATIVE) Urine Bilirubin NEGATIVE (NEGATIVE) Urine Urobilinogen 0.2 (0-1) mg/dL Urine Leukocytes SMALL A (NEGATIVE) Urine WBC (Auto) 51-100 A (0-5) /HPF Urine RBC (Auto) 0-2 (0-2) /HPF U Epithel Cells (Auto) NONE (FEW) /HPF Urine Bacteria (Auto) FEW A (NEGATIVE) /HPF Urine RBC NEGATIVE (0-5) Miko/ul Urine Mucus (Auto) SLIGHT A (NEGATIVE) /HPF Ur Culture Indicated? YES Urine Glucose 500 A (NEGATIVE) mg/dL Influenza Type A Ag NEGATIVE (NEGATIVE) Influenza Type B Ag NEGATIVE (NEGATIVE) RSV (PCR) NEGATIVE (Negative) SARS-CoV-2 (PCR) NEGATIVE (NEGATIVE) 04/23/22 04/23/22 04/23/22 Range/Units 16:00 16:00 16:00 WBC 8.6 (4.0-10.5) x10^3/uL RBC 4.77 (4.1-5.4) x10^6/uL Hgb 11.6 L (12.0-16.0) g/dL Hct 37.2 (35-47) % MCV 78.0 (78-100) fL MCH 24.3 L (26-32) pg MCHC 31.2 L (32-36) g/dL RDW 16.3 H (11.5-14.0) % Plt Count 437 (150-450) x10^3/uL MPV 10.5 (7.5-11.0) fL Gran % 54.1 (36.0-66.0) % Immature Gran % (Auto) 0.4 (0.00-0.4) % Nucleat RBC Rel Count 0.0 (0.00-0.1) % Eos # (Auto) 0.26 (0-0.5) x10^3/uL Immature Gran # (Auto) 0.03 (0.00-0.03) x10^3u/L Absolute Lymphs (auto) 3.04 (1.0-4.6) x10^3/uL Absolute Monos (auto) 0.57 (0.0-1.3) x10^3/uL Absolute Nucleated RBC 0.00 (0.00-0.01) x10^3u/L Lymphocytes % 35.6 (24.0-44.0) % Monocytes % 6.7 (0.0-12.0) % Eosinophils % 3.0 (0.00-5.0) % Basophils % 0.2 (0.0-0.4) % Absolute Granulocytes 4.63 (1.4-6.9) x10^3/uL Basophils # 0.02 (0-0.4) x10^3/uL PT 10.5 (9.4-12.5) SECONDS INR 0.99 (0.8-3.0) APTT 25.1 (25.1-36.5) SECONDS Sodium 134 L (137-145) mmol/L Potassium 4.2 (3.5-5.1) mmol/L Chloride 107 (98-107) mmol/L Carbon Dioxide 21 L (22-30) mmol/L Anion Gap 10.4 (5-15) MEQ/L BUN 20 H (7-17) mg/dL Creatinine 1.05 H (0.52-1.04) mg/dL Estimated GFR 52.6 ML/MIN Glucose 159 H (74-106) mg/dL Lactic Acid (0.4-2.0) Calcium 8.6 (8.4-10.2) mg/dL Total Bilirubin 0.80 (0.2-1.3) mg/dL AST 26 (14-36) U/L ALT 22 (0-35) U/L Alkaline Phosphatase 102 (38-126) U/L Serum Total Protein 7.5 (6.3-8.2) g/dL Albumin 3.8 (3.5-5.0) g/dL Urinalys Dipstick Clnc Urine Color (YELLOW) Urine Appearance (CLEAR) Urine pH (5-6) Ur Specific [place] (1.005-1.025) POC Urine Protein Conf (Negative) Urine Ketones (NEGATIVE) Urine Nitrite (NEGATIVE) Urine Bilirubin (NEGATIVE) Urine Urobilinogen (0-1) mg/dL Urine Leukocytes (NEGATIVE) Urine WBC (Auto) (0-5) /HPF Urine RBC (Auto) (0-2) /HPF U Epithel Cells (Auto) (FEW) /HPF Urine Bacteria (Auto) (NEGATIVE) /HPF Urine RBC (0-5) Miko/ul Urine Mucus (Auto) (NEGATIVE) /HPF Ur Culture Indicated? Urine Glucose (NEGATIVE) mg/dL Influenza Type A Ag (NEGATIVE) Influenza Type B Ag (NEGATIVE) RSV (PCR) (Negative) SARS-CoV-2 (PCR) (NEGATIVE) - Progress Progress: improved Progress Note: Repeat evaluation shows improvement. Patient now able to move her left arm and leg. Initial NIH stroke scale score of 14, now 9. No bleed or emboli found on imaging. Awaiting teleneurology recs and bed placement. 04/26/22 14:51 Discussed with : Gilberto Will see patient in: hospital (observation) Counseled pt/family regarding: lab results, diagnosis, rad results - Departure Departure Disposition: Observation Clinical Impression: Ischemic stroke Condition: Stable Critical Care Time: Yes Critical Care Time(excluding separately billable procedures): Critical 30-74 mins
[2022-04-23 20:29] LABS: INFLUENZA A NEGATIVE (NEGATIVE); INFLUENZA B NEGATIVE (NEGATIVE); RESPIRATORY SYNCTIAL VIRUS NEGATIVE (Negative); SARS-CoV-2 Xpert Express NEGATIVE (NEGATIVE)
[2022-04-24] MEDS ORDERED: TYLENOL 325 MG PO PRN (02:01)
--- NOTE | 2022-04-24 09:14 | XRAY ---
Indication: Left-sided weakness. History stroke. Conventional contrast enhanced CTA neck performed using 100 cc Isovue 370 contrast. 2-D sagittal and coronal reformatted images obtained. Additional 3-D reformatted images obtained using a separate workstation. Comparison: July 18, 2020 Visualized aortic arch again mildly arteriosclerotic with widely patent branching right brachiocephalic, left common carotid, and left subclavian arteries. Both common carotid arteries remain tortuous with mild calcifications at the level of the bulb. Minimal calcifications again extends into the origin of the left and right internal and external carotid arteries without critical stenosis/obstruction. Vertebral arteries again normal in course and caliber with minimal distal vertebral artery calcifications. No critical stenosis, obstruction, or AV malformation. Visualized soft tissues again demonstrate scattered subcentimeter cervical and submandibular lymph nodes, none pathologically enlarged. Thyroid gland remains small. Supra and infraglottic airway are widely patent. Normal epiglottis. Lung apices clear. Osseous structures intact again with osteopenia and moderate degenerative changes throughout the cervical spine. Patient is edentulous. Impression: 1. Grossly stable minimal/mild scattered arteriosclerotic calcifications in both carotid and vertebral arteries without critical stenosis/obstruction. 2. Stable thyroid atrophy and chronic bony findings.
--- NOTE | 2022-04-24 09:16 | XRAY ---
Indication: Left-sided weakness. History stroke. Conventional contrast enhanced CTA head performed using 100 cc Isovue 370 contrast. 2-D sagittal and coronal reformatted images obtained. Additional 3-D reformatted images obtained using a separate workstation. Comparison: July 18, 2020 Distal parasellar internal carotid arteries again demonstrate mild scattered arteriosclerotic calcifications without critical stenosis or obstruction. Normal carotid terminus with normal branching A1 and M1 segments bilaterally. More distal anterior cerebral and middle cerebral arteries are normal in CTA appearance. Posterior circulation again demonstrates normal CT appearance to the basilar, left/right posterior cerebral, and left/right superior cerebellar arteries. Venous sinuses/drainage unremarkable. No abnormal enhancing intra-or extra-axial mass. Impression: 1. Grossly stable mild scattered arteriosclerotic calcifications in both distal internal carotid arteries without critical stenosis/obstruction. 2. Remaining CTA head with contrast exam is negative.
--- NOTE | 2022-04-24 15:28 | PCM.HP ---
History of Present Illness - Chief Complaint Chief Complaint: ischemic stroke History of Present Illness: is an 86 year old female patient of Dr Kerr who resides at [facility] for past 2 years due to Dementia. Patient was brought into ER via EMS with concern for stroke,new left sided weakness. Family states she was able to walk prior to these symptoms. Teleneurology consult appreciated. CT head negative for acute changes, CTA mild ASO vertebral and carotid arteries.MRI of brain recommended. Daughter and son and grandson at bedside.Per patient plan is to return to half-way after Brain MRI . - Review of Systems Constitutional: Weakness Eyes: No Symptoms Ears, Nose, & Throat: Nose Congestion, Other (trouble swallowing ) Respiratory: No Symptoms Cardiac: No Symptoms Abdominal/Gastrointestinal: No Symptoms Genitourinary Symptoms: No Symptoms, Dysuria Musculoskeletal: Fall (left leg won"t hold per daughter) Skin: No Symptoms Neurological: Focal Weakness (LUE LLE), Speech Changes Psychological: Memory Loss (chronic) Endocrine: No Symptoms Hematologic/Lymphatic: No Symptoms Immunological/Allergic: No Symptoms Medications & Allergies Home Medications: Home Medication List Levothyroxine Sodium 150 Mcg [Synthroid 150 Mcg] 137 mcg PO 0600 09/24/18 [History Confirmed 04/23/22] glipiZIDE [Glipizide ER] 10 mg PO DAILY 09/24/18 [History Confirmed 04/23/22] Amlodipine Besylate 5 mg [Norvasc 5 mg] 5 mg PO DAILY 04/27/20 [History Confirmed 04/23/22] Escitalopram Oxalate [Lexapro] 10 mg PO DAILY 04/27/20 [History Confirmed 04/23/22] PANTOPRAZOLE 40 mg Tablet [Protonix 40MG Tablet] 40 mg PO QAM 04/27/20 [History Confirmed 04/23/22] Potassium Chloride Tab* [Klor Con] 20 meq PO DAILY 04/27/20 [History Confirmed 04/23/22] Buspirone HCl 5 mg [Buspar 5 mg] 10 mg PO BID 04/23/22 [History Confirmed 04/23/22] Dapagliflozin Propanediol [Farxiga] 5 mg PO DAILY 04/23/22 [History Confirmed 04/23/22] Acetaminophen 325 mg [Tylenol 325 mg] 650 mg PO UD 04/24/22 [History Confirmed 04/24/22] Acetaminophen 500 mg [Tylenol Extra Strength 500 mg] 1,000 mg PO Q8HPRN PRN 04/24/22 [History Confirmed 04/24/22] Glucagon [Baqsimi] 3 mg IH UD PRN 04/24/22 [History Confirmed 04/24/22] Loperamide HCl 2 mg [Imodium 2 mg] 2 mg PO Q4HPRN PRN 04/24/22 [History Confirmed 04/24/22] Aspirin EC 81 mg [Ecotrin 81 mg] 81 mg PO DAILY #30 tablet 04/25/22 [Rx] Cefuroxime Axetil 500 mg [Ceftin 500 mg] 500 mg PO BID 5 Days #10 tablet [Rx] Allergies/Adverse Reactions: Allergies Allergy/AdvReac Type Severity Reaction Status Date / Time No Known Drug Allergies Allergy Verified 04/23/22 16:24 - Past Medical History Past Medical History: Yes Neurological History: Stroke, TIA ENT History: No Pertinent History Cardiac History: High Cholesterol, Hypertension Respiratory History: No Pertinent History Endocrine Medical History: Diabetes Type II Musculoskelatal History: Arthritis GI Medical History: GERD History: Renal Disease Pyscho-Social History: Anxiety, Depression Reproductive Disorders: No Pertinent History - Past Surgical History Past Surgical History: Yes Neuro Surgical History: No Pertinent History Cardiac History: No Pertinent History Respiratory Surgery: No Pertinent History GI Surgical History: No Pertinent History Genitourinary Surgical Hx: No Pertinent History Musculskeletal Surgical Hx: No Pertinent History Female Surgical History: Hysterectomy - Social History Smoking Status: Never smoker Exposure to second hand smoke: No Alcohol: None Drug Use: none Significant Family History: no pertinent family hx - Physical Exam Vital Signs: Vital Signs - 24 hr Temp Pulse Resp BP Pulse Ox 04/24/22 11:50 98.4 F 66 16 138/92 96 04/24/22 07:29 97.8 F 74 20 175/73 96 04/24/22 05:34 74 18 94 L 04/24/22 02:11 97.7 F 60 18 166/66 94 L 04/24/22 01:01 57 L 18 162/72 93 L 04/24/22 00:00 59 L 16 162/72 95 04/23/22 23:00 58 L 156/68 94 L 04/23/22 22:32 56 L 18 154/58 93 L 04/23/22 21:00 59 L 164/78 95 04/23/22 20:00 56 L 163/84 97 04/23/22 19:12 98 04/23/22 19:04 59 L 20 173/84 98 04/23/22 18:03 97.1 F 63 20 170/84 98 04/23/22 17:22 64 20 173/84 98 04/23/22 16:43 97.1 F 64 20 167/70 98 04/23/22 16:00 97.1 F 57 L 13 167/70 98 General Appearance: no apparent distress, other (lying comfportably visiting with daughter) Neurologic Exam: alert (oriented to person ,recognizes), motor deficits (LUE,LLE), sensory deficit (LUE,LLE), facial droop, No disoriented, No confusion, No agitation Eye Exam: eyes nml inspection Ears, Nose, Throat Exam: normal ENT inspection Neck Exam: normal inspection Respiratory Exam: normal breath sounds Cardiovascular Exam: bradycardia (regular) Gastrointestinal/Abdomen Exam: soft, normal bowel sounds, No tenderness, No distention Pelvic Exam: not done Rectal Exam: not done Back Exam: normal inspection Extremity Exam: pedal edema (1= BILAT ANKLES), No calf tenderness Skin Exam: normal color, warm, dry Results - Labs Lab/Micro Results: Lab Results-Last 24 Hours 04/23/22 04/23/22 04/23/22 Range/Units 16:00 16:00 16:00 WBC 8.6 (4.0-10.5) x10^3/uL RBC 4.77 (4.1-5.4) x10^6/uL Hgb 11.6 L (12.0-16.0) g/dL Hct 37.2 (35-47) % MCV 78.0 (78-100) fL MCH 24.3 L (26-32) pg MCHC 31.2 L (32-36) g/dL RDW 16.3 H (11.5-14.0) % Plt Count 437 (150-450) x10^3/uL MPV 10.5 (7.5-11.0) fL Gran % 54.1 (36.0-66.0) % Immature Gran % (Auto) 0.4 (0.00-0.4) % Nucleat RBC Rel Count 0.0 (0.00-0.1) % Eos # (Auto) 0.26 (0-0.5) x10^3/uL Immature Gran # (Auto) 0.03 (0.00-0.03) x10^3u/L Absolute Lymphs (auto) 3.04 (1.0-4.6) x10^3/uL Absolute Monos (auto) 0.57 (0.0-1.3) x10^3/uL Absolute Nucleated RBC 0.00 (0.00-0.01) x10^3u/L Lymphocytes % 35.6 (24.0-44.0) % Monocytes % 6.7 (0.0-12.0) % Eosinophils % 3.0 (0.00-5.0) % Basophils % 0.2 (0.0-0.4) % Absolute Granulocytes 4.63 (1.4-6.9) x10^3/uL Basophils # 0.02 (0-0.4) x10^3/uL PT 10.5 (9.4-12.5) SECONDS INR 0.99 (0.8-3.0) APTT 25.1 (25.1-36.5) SECONDS Sodium 134 L (137-145) mmol/L Potassium 4.2 (3.5-5.1) mmol/L Chloride 107 (98-107) mmol/L Carbon Dioxide 21 L (22-30) mmol/L Anion Gap 10.4 (5-15) MEQ/L BUN 20 H (7-17) mg/dL Creatinine 1.05 H (0.52-1.04) mg/dL Estimated GFR 52.6 ML/MIN Glucose 159 H (74-106) mg/dL POC Glucometer (74 to 106) mg/dL Hemoglobin A1c (4.5-6.0) % Lactic Acid (0.4-2.0) Calcium 8.6 (8.4-10.2) mg/dL Total Bilirubin 0.80 (0.2-1.3) mg/dL AST 26 (14-36) U/L ALT 22 (0-35) U/L Alkaline Phosphatase 102 (38-126) U/L Serum Total Protein 7.5 (6.3-8.2) g/dL Albumin 3.8 (3.5-5.0) g/dL Urinalys Dipstick Clnc Urine Color (YELLOW) Urine Appearance (CLEAR) Urine pH (5-6) Ur Specific [place] (1.005-1.025) POC Urine Protein Conf (Negative) Urine Ketones (NEGATIVE) Urine Nitrite (NEGATIVE) Urine Bilirubin (NEGATIVE) Urine Urobilinogen (0-1) mg/dL Urine Leukocytes (NEGATIVE) Urine WBC (Auto) (0-5) /HPF Urine RBC (Auto) (0-2) /HPF U Epithel Cells (Auto) (FEW) /HPF Urine Bacteria (Auto) (NEGATIVE) /HPF Urine RBC (0-5) Miko/ul Urine Mucus (Auto) (NEGATIVE) /HPF Ur Culture Indicated? Urine Glucose (NEGATIVE) mg/dL Influenza Type A Ag (NEGATIVE) Influenza Type B Ag (NEGATIVE) RSV (PCR) (Negative) SARS-CoV-2 (PCR) (NEGATIVE) 04/23/22 04/23/22 04/23/22 Range/Units 16:15 18:18 19:45 WBC (4.0-10.5) x10^3/uL RBC (4.1-5.4) x10^6/uL Hgb (12.0-16.0) g/dL Hct (35-47) % MCV (78-100) fL MCH (26-32) pg MCHC (32-36) g/dL RDW (11.5-14.0) % Plt Count (150-450) x10^3/uL MPV (7.5-11.0) fL Gran % (36.0-66.0) % Immature Gran % (Auto) (0.00-0.4) % Nucleat RBC Rel Count (0.00-0.1) % Eos # (Auto) (0-0.5) x10^3/uL Immature Gran # (Auto) (0.00-0.03) x10^3u/L Absolute Lymphs (auto) (1.0-4.6) x10^3/uL Absolute Monos (auto) (0.0-1.3) x10^3/uL Absolute Nucleated RBC (0.00-0.01) x10^3u/L Lymphocytes % (24.0-44.0) % Monocytes % (0.0-12.0) % Eosinophils % (0.00-5.0) % Basophils % (0.0-0.4) % Absolute Granulocytes (1.4-6.9) x10^3/uL Basophils # (0-0.4) x10^3/uL PT (9.4-12.5) SECONDS INR (0.8-3.0) APTT (25.1-36.5) SECONDS Sodium (137-145) mmol/L Potassium (3.5-5.1) mmol/L Chloride (98-107) mmol/L Carbon Dioxide (22-30) mmol/L Anion Gap (5-15) MEQ/L BUN (7-17) mg/dL Creatinine (0.52-1.04) mg/dL Estimated GFR ML/MIN Glucose (74-106) mg/dL POC Glucometer (74 to 106) mg/dL Hemoglobin A1c (4.5-6.0) % Lactic Acid 1.5 (0.4-2.0) Calcium (8.4-10.2) mg/dL Total Bilirubin (0.2-1.3) mg/dL AST (14-36) U/L ALT (0-35) U/L Alkaline Phosphatase (38-126) U/L Serum Total Protein (6.3-8.2) g/dL Albumin (3.5-5.0) g/dL Urinalys Dipstick Clnc MAIN LAB Urine Color YELLOW (YELLOW) Urine Appearance CLEAR (CLEAR) Urine pH 6.0 (5-6) Ur Specific [place] 1.010 (1.005-1.025) POC Urine Protein Conf NEGATIVE (Negative) Urine Ketones NEGATIVE (NEGATIVE) Urine Nitrite NEGATIVE (NEGATIVE) Urine Bilirubin NEGATIVE (NEGATIVE) Urine Urobilinogen 0.2 (0-1) mg/dL Urine Leukocytes SMALL A (NEGATIVE) Urine WBC (Auto) 51-100 A (0-5) /HPF Urine RBC (Auto) 0-2 (0-2) /HPF U Epithel Cells (Auto) NONE (FEW) /HPF Urine Bacteria (Auto) FEW A (NEGATIVE) /HPF Urine RBC NEGATIVE (0-5) Miko/ul Urine Mucus (Auto) SLIGHT A (NEGATIVE) /HPF Ur Culture Indicated? YES Urine Glucose 500 A (NEGATIVE) mg/dL Influenza Type A Ag NEGATIVE (NEGATIVE) Influenza Type B Ag NEGATIVE (NEGATIVE) RSV (PCR) NEGATIVE (Negative) SARS-CoV-2 (PCR) NEGATIVE (NEGATIVE) 04/24/22 04/24/22 04/24/22 Range/Units 06:00 07:21 11:46 WBC (4.0-10.5) x10^3/uL RBC (4.1-5.4) x10^6/uL Hgb (12.0-16.0) g/dL Hct (35-47) % MCV (78-100) fL MCH (26-32) pg MCHC (32-36) g/dL RDW (11.5-14.0) % Plt Count (150-450) x10^3/uL MPV (7.5-11.0) fL Gran % (36.0-66.0) % Immature Gran % (Auto) (0.00-0.4) % Nucleat RBC Rel Count (0.00-0.1) % Eos # (Auto) (0-0.5) x10^3/uL Immature Gran # (Auto) (0.00-0.03) x10^3u/L Absolute Lymphs (auto) (1.0-4.6) x10^3/uL Absolute Monos (auto) (0.0-1.3) x10^3/uL Absolute Nucleated RBC (0.00-0.01) x10^3u/L Lymphocytes % (24.0-44.0) % Monocytes % (0.0-12.0) % Eosinophils % (0.00-5.0) % Basophils % (0.0-0.4) % Absolute Granulocytes (1.4-6.9) x10^3/uL Basophils # (0-0.4) x10^3/uL PT (9.4-12.5) SECONDS INR (0.8-3.0) APTT (25.1-36.5) SECONDS Sodium (137-145) mmol/L Potassium (3.5-5.1) mmol/L Chloride (98-107) mmol/L Carbon Dioxide (22-30) mmol/L Anion Gap (5-15) MEQ/L BUN (7-17) mg/dL Creatinine (0.52-1.04) mg/dL Estimated GFR ML/MIN Glucose (74-106) mg/dL POC Glucometer 103 114 H (74 to 106) mg/dL Hemoglobin A1c 6.71 H (4.5-6.0) % Lactic Acid (0.4-2.0) Calcium (8.4-10.2) mg/dL Total Bilirubin (0.2-1.3) mg/dL AST (14-36) U/L ALT (0-35) U/L Alkaline Phosphatase (38-126) U/L Serum Total Protein (6.3-8.2) g/dL Albumin (3.5-5.0) g/dL Urinalys Dipstick Clnc Urine Color (YELLOW) Urine Appearance (CLEAR) Urine pH (5-6) Ur Specific [place] (1.005-1.025) POC Urine Protein Conf (Negative) Urine Ketones (NEGATIVE) Urine Nitrite (NEGATIVE) Urine Bilirubin (NEGATIVE) Urine Urobilinogen (0-1) mg/dL Urine Leukocytes (NEGATIVE) Urine WBC (Auto) (0-5) /HPF Urine RBC (Auto) (0-2) /HPF U Epithel Cells (Auto) (FEW) /HPF Urine Bacteria (Auto) (NEGATIVE) /HPF Urine RBC (0-5) Miko/ul Urine Mucus (Auto) (NEGATIVE) /HPF Ur Culture Indicated? Urine Glucose (NEGATIVE) mg/dL Influenza Type A Ag (NEGATIVE) Influenza Type B Ag (NEGATIVE) RSV (PCR) (Negative) SARS-CoV-2 (PCR) (NEGATIVE) Microbiology 04/23/22 18:18 Urine Culture - Preliminary Clean Catch Midstream GRAM NEGATIVE ID AND SENSITIVITY PENDING Accuchecks Date 04/24/22 Date 04/24/22 Date 04/23/22 Time 11:50 Time 07:28 Time 16:48 - Radiology Impressions Radiology Exams & Impressions: Radiology Procedures Category Date Time Status CT ANGIOGRAPHY NECK [CT] Stat Exams 04/23/22 16:24 Completed CTA HEAD W AND/OR WO CONTRAST [CT] Stat Exams 04/23/22 16:32 Completed HEAD WITHOUT CONTRAST [CT] Stat Exams 04/23/22 15:50 Completed MRA BRAIN WITHOUT CONTRAST [MRI] Routine Exams 04/24/22 15:22 Ordered Assessment/Plan (1) Ischemic stroke Current Visit: Yes Status: Acute Assessment & Plan: TtELENEURO visit completed ,following recommendations. NPO awaiting Speech Therapist Code(s): I63.9 - CEREBRAL INFARCTION, UNSPECIFIED (2) UTI (urinary tract infection) Current Visit: Yes Status: Acute Assessment & Plan: Rocephin started Code(s): N39.0 - URINARY TRACT INFECTION, SITE NOT SPECIFIED (3) Dementia Current Visit: Yes Status: Chronic Code(s): F03.90 - UNSPECIFIED DEMENTIA WITHOUT BEHAVIORAL DISTURBANCE (4) DM2 (diabetes mellitus, type 2) Current Visit: Yes Status: Chronic Qualifiers: Diabetes mellitus complication detail: with peripheral angiopathy without gangrene
[2022-04-24] MEDS ORDERED: TYLENOL EXTRA STRENGTH 500 MG PO PRN (17:32)
[2022-04-24] MEDS ORDERED: NON-FORMULARY ITEM (Glucagon [Baqsimi] 3 MG Spray) IH PRN (17:32)
[2022-04-24] MEDS ORDERED: IMODIUM 2 MG PO PRN (17:32)
[2022-04-24] MEDS ORDERED: MEDICATION INTERVENTION MC SCH ×2 (17:45)
[2022-04-24] MEDS ORDERED: TYLENOL 325 MG PO SCH (18:00)
[2022-04-24] MEDS: ECOTRIN 81 MG PO SCH (18:27)
[2022-04-24] MEDS: Pepcid 20 MG VIAL IV SCH ×3 (18:28→22:15)
[2022-04-24] MEDS ORDERED: ZOCOR 20MG PO SCH (22:00)
[2022-04-24] MEDS ORDERED: ROCEPHIN 1 Gm-D5w 50 ml Bag** 1 G/50 ML IVPB IV SCH (22:00)
[2022-04-24] MEDS: BUSPAR 5 MG PO SCH (22:14)
[2022-04-25] MEDS ORDERED: SYNTHROID 150 MCG PO SCH (06:00)
[2022-04-25] MEDS ORDERED: SYNTHROID 112 MCG PO SCH (06:00)
[2022-04-25] MEDS ORDERED: SYNTHROID 25 MCG PO SCH (06:00)
[2022-04-25 07:53] VITALS: PULSE 70
[2022-04-25] MEDS ORDERED: Ativan 2 MG/1 ML VIAL IV ONE ×2 (09:00→09:45)
[2022-04-25] MEDS ORDERED: NON-FORMULARY ITEM (Dapagliflozin Propanediol [Farxiga] 5 MG Tablet) PO SCH (10:00)
[2022-04-25] MEDS ORDERED: Glucotrol Xl 2.5 MG PO SCH (10:00)
[2022-04-25] MEDS ORDERED: Klor Con PO SCH (10:00)
[2022-04-25] MEDS ORDERED: Lexapro PO SCH (10:00)
[2022-04-25] MEDS ORDERED: NORVASC 5 MG PO SCH (10:00)
[2022-04-25] MEDS ORDERED: Protonix 40MG Tablet PO SCH (10:00)
--- NOTE | 2022-04-25 11:28 | XRAY ---
Indication: New left hemiparesis. CTA head 2 days ago reports arteriosclerotic disease in both internal carotid arteries without critical stenosis/obstruction. Multi slab 3-D [id number] MRA makah of [place] performed. Comparison: CTA head April 23, 2022. Both distal internal carotid arteries are normal in course and caliber without critical stenosis/obstruction. Normal carotid terminus with normal branching A1 and M1 segments bilaterally. Tiny patent anterior communicating and left/right posterior communicating arteries. Posterior circulation demonstrates normal MRA appearance of the distal vertebral arteries, basilar, left/right posterior cerebral, and left/right superior cerebellar arteries. Impression: Negative MRA makah of [place].
[2022-04-25 11:40] LABS: Absolute Neutrophil Ct (ANC) 5.79 x10^3/uL (1.4-6.9); Basophil (Absolute #) 0.03 x10^3/uL (0-0.4); Eosinophil (Absolute #) 0.08 x10^3/uL (0-0.5); Hematocrit 39.5 % (35-47); Hemoglobin 12.3 g/dL (12.0-16.0); Lymphocyte (Absolute #) 1.86 x10^3/uL (1.0-4.6); Lymphocytes % 22.2 % (24.0-44.0); Mean Cell Volume 78.2 fL (78-100); Mean Corpuscular Hemoglobin 24.4 pg (26-32); Mean Corpuscular Hgb Concent. 31.1 g/dL (32-36); Mean Platelet Volume 9.8 fL (7.5-11.0); Monocyte (Absolute #) 0.57 x10^3/uL (0.0-1.3); Monocytes % 6.8 % (0.0-12.0); Neutrophil % 69.2 % (36.0-66.0); Platelet Count 456 x10^3/uL (150-450); Red Blood Count 5.05 x10^6/uL (4.1-5.4); Red Cell Distribution Width 16.7 % (11.5-14.0); White Blood Count 8.4 x10^3/uL (4.0-10.5)
[2022-04-25 11:53] LABS: ALBUMIN 4.1 g/dL (3.5-5.0); ALKALINE PHOSPHATASE 114 U/L (38-126); ANION GAP 12.9 MEQ/L (5-15); BLOOD UREA NITROGEN 19 mg/dL (7-17); CHLORIDE 110 mmol/L (98-107); Calcium 8.7 mg/dL (8.4-10.2); Carbon Dioxide 21 mmol/L (22-30); Creatinine 1 0.89 mg/dL (0.52-1.04); EST GLOMERULAR FILTRATION RATE > 60.0 ML/MIN; Glucose 128 mg/dL (74-106); Potassium 3.5 mmol/L (3.5-5.1); SGOT/AST 29 U/L (14-36); SGPT/ALT 21 U/L (0-35); SODIUM 140 mmol/L (137-145); Total Protein 7.7 g/dL (6.3-8.2)
--- NOTE | 2022-04-25 11:57 | PCM.DCORD ---
- Discharge Disposition: DC TO ANY "OTHER" SENIOR CARE Condition: Stable Prescriptions: New Aspirin EC 81 mg [Ecotrin 81 mg] 81 mg PO DAILY #30 tablet Continue glipiZIDE [Glipizide ER] 10 mg PO DAILY Levothyroxine Sodium 150 Mcg [Synthroid 150 Mcg] 137 mcg PO 0600 PANTOPRAZOLE 40 mg Tablet [Protonix 40MG Tablet] 40 mg PO QAM Escitalopram Oxalate [Lexapro] 10 mg PO DAILY Potassium Chloride Tab* [Klor Con] 20 meq PO DAILY Amlodipine Besylate 5 mg [Norvasc 5 mg] 5 mg PO DAILY Dapagliflozin Propanediol [Farxiga] 5 mg PO DAILY Buspirone HCl 5 mg [Buspar 5 mg] 10 mg PO BID Acetaminophen 500 mg [Tylenol Extra Strength 500 mg] 1,000 mg PO Q8HPRN PRN PRN Reason: Pain Glucagon [Baqsimi] 3 mg IH UD PRN PRN Reason: low blood sugar Loperamide HCl 2 mg [Imodium 2 mg] 2 mg PO Q4HPRN PRN PRN Reason: Loose Stools Acetaminophen 325 mg [Tylenol 325 mg] 650 mg PO UD Additional Instructions: SCHEDULE ECHO WITH BUBBLE STUDY OUTPATIENT PER TELE-NEURO RECOMMENDATION Follow up with: ALY COVARRUBIAS [ACTIVE STAFF] - 05/01/22 3:30 pm NILES BARBER MD [Primary Care Provider] -
[2022-04-25] MEDS: ECOTRIN 81 MG PO SCH (12:01)
[2022-04-25] MEDS: Pepcid 20 MG VIAL IV SCH (12:01)
[2022-04-25] MEDS: BUSPAR 5 MG PO SCH (12:02)
[2022-04-25 12:20] VITALS: BP 188/82
[2022-04-25] MEDS ORDERED: ROCEPHIN 1 Gm-D5w 50 ml Bag** 1 G/50 ML IVPB IV SCH (22:00)
[2022-04-26 14:43] VITALS: O2SAT 98
== END 2022-04-25 15:35 ==
LOC: ED 15:44 → MED SURG 04-24 01:55
PROVIDERS: ADMIT Family Medicine; ATTEND Family Medicine
DX: I63.9 Cerebral infarction, unspecified (principal); F03.90 Unspecified dementia, unspecified severity, without behavioral disturbance, psychotic disturbance, mood disturbance, and anxiety; N39.0 Urinary tract infection, site not specified; I10 Essential (primary) hypertension; E11.9 Type 2 diabetes mellitus without complications; E78.5 Hyperlipidemia, unspecified; Z79.899 Other long term (current) drug therapy; Z20.828 Contact with and (suspected) exposure to other viral communicable diseases
CPT/HCPCS: 0241U; 36000; 36415; 51702; 70450; 70496; 70498; 70544; 80053; 81015; 82947; 83036; 83605; 85025; 85610; 85730; 87077; 87086; 87186; 92610; 93005; 93041; 94760; 99285; 99291; 93268; J0696; J2060; A9270-GY; G0378